=== PATIENT | male | born 1965 | race Caucasian/White ===

== ENCOUNTER 2021-02-17 04:45 | Emergency (ER) | payer SELFPAY ==
[2021-02-17 04:50] VITALS: BP 157/92; PULSE 81; RESP 16; TEMP 36.5; O2SAT 93; BMI 26.6
--- NOTE | 2021-02-17 04:56 | W.ED.SEIZURE ---
Documented by User: Carlito Gagnon DO 02/17/21 07:45 HPI - Seizure General: Chief Complaint: Seizure Stated Complaint: seizure Time Seen by Provider: 02/17/21 04:55 History of Present Illness: HPI Narrative: 55-year-old gentleman with a history of seizure disorder since the early s. He states his last seizure was about 6 months ago. He states normally if he goes to bed on time, gets plenty of sleep, and avoid stress he does not have seizures. He used to take Depakote, but does not take it anymore because he says that nothing really works to stop his seizures, only aspirin because it improves the blood flow to his brain . He admits to having had some alcohol last night. MD complaint: seizure Onset (ago): hour(s) Description of Episode: loss of consciousness, tonic-clonic movement, bladder incontinence and post-event confusion Witnessed: Yes - by Bystander Trauma: No Seizure History: Yes Place: Home Possible Precipitating Event: alcohol withdrawal (Potentially) Associated symptoms: Deny chest pain, chills, confusion, cough, diaphoresis or fever(s) Treatments prior to arrival: none Review of Systems Const: Denies: fever(s), chills or diaphoresis Card: Denies: chest pain Resp: Denies: dyspnea, productive cough or non-productive cough GI: Reports: nausea; Denies: abdominal pain, vomiting or hematemesis Neuro: Reports: headache(s) and dizziness; Denies: weakness in extremities, confusion or Slurred speech present Physical Exam Const: GENERAL APPEARANCE: well developed ORIENTATION/CONSCIOUSNESS: Yes oriented to person, Yes oriented to place and Yes oriented to time HENMT: COMMON NORMALS: normocephalic, external ears normal and Normal external nose present HEAD & SCALP: normocephalic FACE & SINUS: normal facial exam NOSE: Normal external nose present and No nasal discharge present EXTERNAL EAR: Yes external ears normal MOUTH: tongue normal TEETH & GINGIVA: Yes gingiva abnormal, Yes teeth discoloration and Yes other (Gum hypertrophy and discoloration, likely from Depakote) THROAT: posterior oropharynx normal; no peritonsillar mass Eye: COMMON NORMALS: Equal, round and reactive pupils present, EOMs intact bilaterally and conjunctivae normal EYELID: eyelids normal CONJUNCTIVA: Yes conjunctivae normal PUPIL: Yes Equal, round and reactive pupils present Neck/C-Spine: GENERAL: No tracheal deviation Chest: COMMONS NORMALS: normal inspection of the chest CHEST: No tenderness Resp: COMMON NORMALS: clear to auscultation bilaterally EFFORT & INSPECTION: No tachypneic, No respiratory distress, No retractions, No uses accessory muscles and No tracheal deviation AUSCULTATION: clear to auscultation bilaterally, no rhonchi, no wheezes and lung sounds not diminished Cardio: COMMON NORMALS: regular rate and regular rhythm RATE: regular rate RHYTHM: regular rhythm HEART SOUNDS: no murmurs PERIPHERAL PULSES: radial pulses present GI: INSPECTION: No abdominal distension AUSCULTATION: No Hyperactive bowel sounds present and No Hypoactive bowel sounds present PALPATION: No Guarding due to palpation present (GI) and No Rigid due to palpation PERCUSSION: no dullness to percussion and no tympanic to percussion Neuro: SENSORIUM/ORIENTATION: Yes oriented to person, Yes oriented to place and Yes oriented to time CRANIAL NERVES: Yes CN normal except as noted SENSORY EXAM: Yes extremities (Intact) MOTOR EXAM: 5/5 motor strength present throughout and Pronator motor function not present Psych: COMMON NORMALS: mental status grossly normal Skin: COMMON NORMALS: no rashes or lesions noted GENERAL SKIN EXAM: no rashes or lesions noted Course Vital Signs: Vital signs: Vital Signs Temperature 97.7 F 02/17/21 04:50 Pulse Rate 65 02/17/21 09:12 Respiratory Rate 18 02/17/21 09:12 Blood Pressure 143/81 02/17/21 09:12 Pulse Oximetry 97 02/17/21 09:12 MDM - Seizure MDM Narrative: Medical decision making narrative: Patient with a history of seizure disorder, he appears to be back to baseline now after a seizure. Laboratories are benign at this point. He will be discharged Lab Data: Labs: Lab Results 02/17/21 02/17/21 02/17/21 Range/Units 04:56 04:56 05:15 WBC 9.4 (4.0-10.0) 10^3/ uL RBC 4.43 (4.1-5.3) 10^6/u L Hgb 14.1 (11.7-16.6) g/dL Hct 41.9 L (42.0-52.0) % MCV 94.6 H (80-94) fL MCH 31.8 (28.0-34.0) pg MCHC 33.7 (30.0-36.0) g/dL RDW 11.7 L (12.1-15.1) % Plt Count 309 (130-400) 10^3/c mm MPV 10.9 H (7.4-10.4) fL Neut % (Auto) 85.7 % Lymph % (Auto) 8.1 % Cannon % (Auto) 4.9 % Eos % (Auto) 0.4 % Baso % (Auto) 0.4 % Neut # (Auto) 8.01 H (1.8-7.7) 10^3/u L Lymph # (Auto) 0.8 (0.8-4.8) 10^3/u L Cannon # (Auto) 0.5 (0.2-0.9) 10^3/u L Eos # (Auto) 0.0 (0.0-0.8) 10^3/u L Baso # (Auto) 0.0 (0.0-0.1) 10^3/u L Nucleated RBC % (a uto) 0 % Nucleated RBCs # 0.0 /100WBC Sodium 136 (136-145) mmol/L Potassium 3.4 L (3.5-5.1) mmol/L Chloride 103 (98-107) mmol/L Carbon Dioxide 23 (22-29) mmol/L Anion Gap 13.4 (5-19) BUN 18 (6-20) mg/dL Creatinine 0.7 (0.7-1.2) mg/dL GFR Calculation 117.5 (90-130) mL/min Glucose 142 H (65-115) mg/dL Calculated Osmolal ity 286 (285-295) mOsm/k g Calcium 8.6 (8.5-10.5) mg/dL Phosphorus 1.4 L (2.5-4.5) mg/dL Magnesium 2.3 (1.7-2.3) mg/dL Total Bilirubin 0.4 (0.15-1.2) mg/dL AST 20 (0-40) U/L ALT 40 (0-41) U/L Alkaline Phosphata se 94 (40-130) IU/L C-Reactive Protein 0.7 (0.0-4.9) mg/L Total Protein 7.1 (6.6-8.7) g/dL Albumin 4.5 (3.5-5.2) g/dL Globulin 2.6 (1.3-4.6) g/dL Urine Color Yellow (Yellow) Urine Appearance Clear (CLEAR) Urine pH 5 (5-7) Ur Specific Gravit y 1.020 (1.005-1.030) Urine Protein 1+ H (Negative) Urine Glucose (UA) Norm (Normal) Urine Ketones 1+ H (Negative) Urine Blood 3+ H (Negative) Urine Nitrate Negative (Negative) Urine Bilirubin Neg (Negative) Urine Urobilinogen Norm (Negative) mg/dL Ur Leukocyte Chelly ase Negative (Negative) Urine RBC 0-4 H (0-2) /hpf Urine WBC None (0-5) /hpf Ur Squamous Epith Cells None (0-5) /hpf Amorphous Sediment Not Reportable Urine Bacteria None (NONE) /hpf Urine Sperm None /hpf Urine Opiates Scre en (Negative) ng/mL Ur Barbiturates Sc reen (Negative) ng/mL Ur Phencyclidine S crn (Negative) ng/mL Ur Amphetamines Sc reen (Negative) ng/mL U Benzodiazepines Scrn (Negative) ng/mL Urine Cocaine Scre en (Negative) ng/mL U Marijuana (THC) Screen (Negative) ng/mL Ethyl Alcohol < 10 (0-10) mg/dL 02/17/21 Range/Units 05:15 WBC (4.0-10.0) 10^3/ uL RBC (4.1-5.3) 10^6/u L Hgb (11.7-16.6) g/dL Hct (42.0-52.0) % MCV (80-94) fL MCH (28.0-34.0) pg MCHC (30.0-36.0) g/dL RDW (12.1-15.1) % Plt Count (130-400) 10^3/c mm MPV (7.4-10.4) fL Neut % (Auto) % Lymph % (Auto) % Cannon % (Auto) % Eos % (Auto) % Baso % (Auto) % Neut # (Auto) (1.8-7.7) 10^3/u L Lymph # (Auto) (0.8-4.8) 10^3/u L Cannon # (Auto) (0.2-0.9) 10^3/u L Eos # (Auto) (0.0-0.8) 10^3/u L Baso # (Auto) (0.0-0.1) 10^3/u L Nucleated RBC % (a uto) % Nucleated RBCs # /100WBC Sodium (136-145) mmol/L Potassium (3.5-5.1) mmol/L Chloride (98-107) mmol/L Carbon Dioxide (22-29) mmol/L Anion Gap (5-19) BUN (6-20) mg/dL Creatinine (0.7-1.2) mg/dL GFR Calculation (90-130) mL/min Glucose (65-115) mg/dL Calculated Osmolal ity (285-295) mOsm/k g Calcium (8.5-10.5) mg/dL Phosphorus (2.5-4.5) mg/dL Magnesium (1.7-2.3) mg/dL Total Bilirubin (0.15-1.2) mg/dL AST (0-40) U/L ALT (0-41) U/L Alkaline Phosphata se (40-130) IU/L C-Reactive Protein (0.0-4.9) mg/L Total Protein (6.6-8.7) g/dL Albumin (3.5-5.2) g/dL Globulin (1.3-4.6) g/dL Urine Color (Yellow) Urine Appearance (CLEAR) Urine pH (5-7) Ur Specific Gravit y (1.005-1.030) Urine Protein (Negative) Urine Glucose (UA) (Normal) Urine Ketones (Negative) Urine Blood (Negative) Urine Nitrate (Negative) Urine Bilirubin (Negative) Urine Urobilinogen (Negative) mg/dL Ur Leukocyte Chelly ase (Negative) Urine RBC (0-2) /hpf Urine WBC (0-5) /hpf Ur Squamous Epith Cells (0-5) /hpf Amorphous Sediment Urine Bacteria (NONE) /hpf Urine Sperm /hpf Urine Opiates Scre en Negative (Negative) ng/mL Ur Barbiturates Sc reen Negative (Negative) ng/mL Ur Phencyclidine S crn Negative (Negative) ng/mL Ur Amphetamines Sc reen Negative (Negative) ng/mL U Benzodiazepines Scrn Negative (Negative) ng/mL Urine Cocaine Scre en Negative (Negative) ng/mL U Marijuana (THC) Screen Negative (Negative) ng/mL Ethyl Alcohol (0-10) mg/dL Discharge Plan Discharge Patient Disposition: Home Clinical Impression: Epileptic seizure Qualifiers: Epilepsy type: other generalized Condition: Stable Discharge Orders: Discharge ED (Routine); Ordered 02/17/21 Ordered By: Carlito Gagnon Discharge Diet: Advance as tolerated Discharge Activity: Limit activity as instructed Patient Instructions: Recurrent Seizures Adult (ED) Activity Restrictions/Additional Instructions: Do not drive a car or operate machinery until you are cleared by a neurologist. 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 However Dr. Gagnon remained in the department well after his shift to assist with several critical patients and ultimately discharge the patient himself. I did not participate in patient's care. Lab Data: Labs: Lab Results 02/17/21 02/17/21 02/17/21 Range/Units 04:56 04:56 05:15 WBC 9.4 (4.0-10.0) 10^3/ uL RBC 4.43 (4.1-5.3) 10^6/u L Hgb 14.1 (11.7-16.6) g/dL Hct 41.9 L (42.0-52.0) % MCV 94.6 H (80-94) fL MCH 31.8 (28.0-34.0) pg MCHC 33.7 (30.0-36.0) g/dL RDW 11.7 L (12.1-15.1) % Plt Count 309 (130-400) 10^3/c mm MPV 10.9 H (7.4-10.4) fL Neut % (Auto) 85.7 % Lymph % (Auto) 8.1 % Cannon % (Auto) 4.9 % Eos % (Auto) 0.4 % Baso % (Auto) 0.4 % Neut # (Auto) 8.01 H (1.8-7.7) 10^3/u L Lymph # (Auto) 0.8 (0.8-4.8) 10^3/u L Cannon # (Auto) 0.5 (0.2-0.9) 10^3/u L Eos # (Auto) 0.0 (0.0-0.8) 10^3/u L Baso # (Auto) 0.0 (0.0-0.1) 10^3/u L Nucleated RBC % (a uto) 0 % Nucleated RBCs # 0.0 /100WBC Sodium 136 (136-145) mmol/L Potassium 3.4 L (3.5-5.1) mmol/L Chloride 103 (98-107) mmol/L Carbon Dioxide 23 (22-29) mmol/L Anion Gap 13.4 (5-19) BUN 18 (6-20) mg/dL Creatinine 0.7 (0.7-1.2) mg/dL GFR Calculation 117.5 (90-130) mL/min Glucose 142 H (65-115) mg/dL Calculated Osmolal ity 286 (285-295) mOsm/k g Calcium 8.6 (8.5-10.5) mg/dL Phosphorus 1.4 L (2.5-4.5) mg/dL Magnesium 2.3 (1.7-2.3) mg/dL Total Bilirubin 0.4 (0.15-1.2) mg/dL AST 20 (0-40) U/L ALT 40 (0-41) U/L Alkaline Phosphata se 94 (40-130) IU/L C-Reactive Protein 0.7 (0.0-4.9) mg/L Total Protein 7.1 (6.6-8.7) g/dL Albumin 4.5 (3.5-5.2) g/dL Globulin 2.6 (1.3-4.6) g/dL Urine Color Yellow (Yellow) Urine Appearance Clear (CLEAR) Urine pH 5 (5-7) Ur Specific Gravit y 1.020 (1.005-1.030) Urine Protein 1+ H (Negative) Urine Glucose (UA) Norm (Normal) Urine Ketones 1+ H (Negative) Urine Blood 3+ H (Negative) Urine Nitrate Negative (Negative) Urine Bilirubin Neg (Negative) Urine Urobilinogen Norm (Negative) mg/dL Ur Leukocyte Chelly ase Negative (Negative) Urine RBC 0-4 H (0-2) /hpf Urine WBC None (0-5) /hpf Ur Squamous Epith Cells None (0-5) /hpf Amorphous Sediment Not Reportable Urine Bacteria None (NONE) /hpf Urine Sperm None /hpf Urine Opiates Scre en (Negative) ng/mL Ur Barbiturates Sc reen (Negative) ng/mL Ur Phencyclidine S crn (Negative) ng/mL Ur Amphetamines Sc reen (Negative) ng/mL U Benzodiazepines Scrn (Negative) ng/mL Urine Cocaine Scre en (Negative) ng/mL U Marijuana (THC) Screen (Negative) ng/mL Ethyl Alcohol < 10 (0-10) mg/dL 02/17/21 Range/Units 05:15 WBC (4.0-10.0) 10^3/ uL RBC (4.1-5.3) 10^6/u L Hgb (11.7-16.6) g/dL Hct (42.0-52.0) % MCV (80-94) fL MCH (28.0-34.0) pg MCHC (30.0-36.0) g/dL RDW (12.1-15.1) % Plt Count (130-400) 10^3/c mm MPV (7.4-10.4) fL Neut % (Auto) % Lymph % (Auto) % Cannon % (Auto) % Eos % (Auto) % Baso % (Auto) % Neut # (Auto) (1.8-7.7) 10^3/u L Lymph # (Auto) (0.8-4.8) 10^3/u L Cannon # (Auto) (0.2-0.9) 10^3/u L Eos # (Auto) (0.0-0.8) 10^3/u L Baso # (Auto) (0.0-0.1) 10^3/u L Nucleated RBC % (a uto) % Nucleated RBCs # /100WBC Sodium (136-145) mmol/L Potassium (3.5-5.1) mmol/L Chloride (98-107) mmol/L Carbon Dioxide (22-29) mmol/L Anion Gap (5-19) BUN (6-20) mg/dL Creatinine (0.7-1.2) mg/dL GFR Calculation (90-130) mL/min Glucose (65-115) mg/dL Calculated Osmolal ity (285-295) mOsm/k g Calcium (8.5-10.5) mg/dL Phosphorus (2.5-4.5) mg/dL Magnesium (1.7-2.3) mg/dL Total Bilirubin (0.15-1.2) mg/dL AST (0-40) U/L ALT (0-41) U/L Alkaline Phosphata se (40-130) IU/L C-Reactive Protein (0.0-4.9) mg/L Total Protein (6.6-8.7) g/dL Albumin (3.5-5.2) g/dL Globulin (1.3-4.6) g/dL Urine Color (Yellow) Urine Appearance (CLEAR) Urine pH (5-7) Ur Specific Gravit y (1.005-1.030) Urine Protein (Negative) Urine Glucose (UA) (Normal) Urine Ketones (Negative) Urine Blood (Negative) Urine Nitrate (Negative) Urine Bilirubin (Negative) Urine Urobilinogen (Negative) mg/dL Ur Leukocyte Chelly ase (Negative) Urine RBC (0-2) /hpf Urine WBC (0-5) /hpf Ur Squamous Epith Cells (0-5) /hpf Amorphous Sediment Urine Bacteria (NONE) /hpf Urine Sperm /hpf Urine Opiates Scre en Negative (Negative) ng/mL Ur Barbiturates Sc reen Negative (Negative) ng/mL Ur Phencyclidine S crn Negative (Negative) ng/mL Ur Amphetamines Sc reen Negative (Negative) ng/mL U Benzodiazepines Scrn Negative (Negative) ng/mL Urine Cocaine Scre en Negative (Negative) ng/mL U Marijuana (THC) Screen Negative (Negative) ng/mL Ethyl Alcohol (0-10) mg/dL Discharge Plan Discharge Patient Disposition: Home Clinical Impression: Epileptic seizure Qualifiers: Epilepsy type: other generalized Condition: Stable Discharge Orders: Discharge ED (Routine); Ordered 02/17/21 Ordered By: Carlito Gagnon Discharge Diet: Advance as tolerated Discharge Activity: Limit activity as instructed Patient Instructions: Recurrent Seizures Adult (ED) Activity Restrictions/Additional Instructions: Do not drive a car or operate machinery until you are cleared by a neurologist. 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
--- NOTE | 2021-02-17 05:16 | XRR_ITS ---
PROCEDURE INFORMATION: Exam: XR Chest Exam date and time: 02/17/2021 5:21 AM Age: 55 years old Clinical indication: Patient HX: Seizure activity; Additional info: Bridger TECHNIQUE: Imaging protocol: XR of the chest. Views: 1 view. COMPARISON: No relevant prior studies available. FINDINGS: Lungs: Unremarkable. No consolidation. Pleural spaces: Unremarkable. No pleural effusion. No pneumothorax. Heart/Mediastinum: Unremarkable. No cardiomegaly. Bones/joints: Unremarkable. XR/XR chest 1V portable [id number] IMPRESSION: No acute findings.
[2021-02-17] MEDS: sodium chloride 0.9% 500 ML IV (05:28)
[2021-02-17 05:35] VITALS: BP 151/93; PULSE 69; O2SAT 95
[2021-02-17 05:49] LABS: Basophils % 0.4 %; Eosinophils % 0.4 %; Hematocrit 41.9 % (42.0-52.0); Hemoglobin 14.1 g/dL (11.7-16.6); Lymphocytes # 0.8 10^3/uL (0.8-4.8); Lymphocytes % 8.1 %; Mean Corpuscular HGB Conc 33.7 g/dL (30.0-36.0); Mean Corpuscular Hemoglobin 31.8 pg (28.0-34.0); Mean Corpuscular Volume 94.6 fL (80-94); Mean Platelet Volume 10.9 fL (7.4-10.4); Monocytes # 0.5 10^3/uL (0.2-0.9); Monocytes % 4.9 %; Neutrophils # 8.01 10^3/uL (1.8-7.7); Neutrophils % 85.7 %; Nucleated Red Blood Cells % 0 %; Platelet Count 309 10^3/cmm (130-400); Red Blood Count 4.43 10^6/uL (4.1-5.3); Red Cell Distribution Width 11.7 % (12.1-15.1); White Blood Count 9.4 10^3/uL (4.0-10.0)
[2021-02-17 06:01] LABS: Alanine Aminotransferase 40 U/L (0-41); Albumin Level 4.5 g/dL (3.5-5.2); Alkaline Phosphatase 94 IU/L (40-130); Anion Gap 13.4 (5-19); Aspartate Amino Transferase 20 U/L (0-40); Blood Urea Nitrogen 18 mg/dL (6-20); C Reactive Protein 0.7 mg/L (0.0-4.9); Calcium 8.6 mg/dL (8.5-10.5); Carbon Dioxide 23 mmol/L (22-29); Chloride 103 mmol/L (98-107); Globulin 2.6 g/dL (1.3-4.6); Glomerular Filtration Rate 117.5 mL/min (90-130); Glucose 142 mg/dL (65-115); Magnesium 2.3 mg/dL (1.7-2.3); Osmolality Calculated 286 mOsm/kg (285-295); Phosphorus 1.4 mg/dL (2.5-4.5); Potassium 3.4 mmol/L (3.5-5.1); Sodium 136 mmol/L (136-145); Total Bilirubin 0.4 mg/dL (0.15-1.2); Total Protein 7.1 g/dL (6.6-8.7)
[2021-02-17 06:03] LABS: Amphetamines Screen Urine Negative (Negative); Barbiturates Screen Urine Negative (Negative); Benzodiazepines Screen Urine Negative (Negative); Cocaine Screen Urine Negative (Negative); Opiate Screen Urine Negative (Negative); PCP Screen Urine Negative (Negative); THC Screen Urine Negative (Negative)
[2021-02-17 07:00] VITALS: BP 118/78; PULSE 64; RESP 18; O2SAT 96
[2021-02-17 07:24] LABS: Alcohol Level < 10 mg/dL (0-10)
[2021-02-17 07:32] LABS: Glucose Urine UA Norm (Normal); Protein Urine 1+ (Negative); Urine Appearance Clear (CLEAR); Urine Color Yellow (Yellow); pH Urine 5 (5-7)
[2021-02-17 07:33] LABS: Add Urine Microscopic? YES; Bilirubin Urine Neg (Negative); Blood Urine 3+ (Negative); Ketones Urine 1+ (Negative); Leukocyte Esterase Urine Negative (Negative); Nitrate Urine Negative (Negative); Urobilinogen Urine Norm (Negative)
[2021-02-17 07:35] LABS: RBC Urine 0-4 /hpf (0-2)
[2021-02-17 07:36] LABS: Add Urine Culture? No
[2021-02-17 09:10] VITALS: BP 143/81; PULSE 65; RESP 18; O2SAT 97
[2021-02-17 09:12] VITALS: BP 143/81; PULSE 65; RESP 18; O2SAT 97
== END 2021-02-17 09:35 | disposition home or self-care (01) ==
PROVIDERS: Emergency Provider Emergency Medicine
DX: G40.409 Other generalized epilepsy and epileptic syndromes, not intractable, without status epilepticus (principal)
CPT/HCPCS: 71045; 80053; 80306; 80307; 81001; 83735; 84100; 85025; 86140; 96360; 99283; J7040

== ENCOUNTER 2021-07-01 21:08 | Inpatient (IN) | payer SELFPAY ==
[2021-07-01 21:13] VITALS: BP 151/117; PULSE 123; RESP 18; TEMP 36.4; O2SAT 96; BMI 25.8
--- NOTE | 2021-07-01 21:23 | CTR_ITS ---
PROCEDURE INFORMATION: Exam: CT Abdomen And Pelvis With Contrast Exam date and time: 07/01/2021 9:23 PM Age: 56 years old Clinical indication: Abdominal pain; Generalized; Patient HX: C/O abd pain w n/v since 06/29; Additional info: Abdominal pain vomiting TECHNIQUE: Imaging protocol: Computed tomography of the abdomen and pelvis with contrast. Radiation optimization: All CT scans at this facility use at least one of these dose optimization techniques: automated exposure control; mA and/or kV adjustment per patient size (includes targeted exams where dose is matched to clinical indication); or iterative reconstruction. Contrast material: OMNI 300; Contrast volume: 95 ml; Contrast route: INTRAVENOUS (IV); COMPARISON: CT abdomen pelvis w con* [id number] 01/23/2015 11:39 AM RADIATION DOSE METRICS: Total DLP (mGy-cm): 1548.02 FINDINGS: Lungs: The lung bases are clear. No effusion Liver: There is a subcentimeter low-attenuation lesion of the liver which is too small to accurately characterize but may represent a cyst. Gallbladder and bile ducts: There is cholelithiasis without wall thickening or pericholecystic fluid. Pancreas: Mild pancreatic edema with peripancreatic fat stranding. Normal pancreatic enhancement. Spleen: Normal. No splenomegaly. Adrenal glands: Normal. No mass. Kidneys and ureters: There is a subcentimeter low-attenuation lesions/lesions, of the right kidney which are too small to accurately characterize by CT. There are multiple left renal cysts, largest measures 2 cm. Stomach and bowel: Diverticulosis without diverticulitis. Appendix: No evidence of appendicitis. Intraperitoneal space: Small amount of free fluid in the pelvis. Vasculature: Mild atherosclerotic disease of the aorta without aneurysm. Lymph nodes: Unremarkable. No enlarged lymph nodes. Urinary bladder: Unremarkable as visualized. Reproductive: Unremarkable as visualized. Bones/joints: Unremarkable. No acute fracture. Soft tissues: Unremarkable. CT/CT abdomen pelvis w con* [id number] IMPRESSION: 1. Acute, uncomplicated 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 No evidence of necrosis. 2. Cholelithiasis without cholecystitis. 3. Mild atherosclerotic disease of the aorta without aneurysm. 4. Diverticulosis without diverticulitis. COMMENTS: Consistent with the [employer]'s Incidental Findings Committee white paper (J Am Konrad Radiol 2018): Any incidental renal lesion less than 1 cm or classified as too small to characterize, or any incidental cystic renal lesion characterized as simple-appearing, is likely benign. No follow-up imaging is recommended for these lesions per consensus recommendations based on imaging criteria. Radiation Dose CTDIVOL = (mGy): DLP = 1548.02 (mGy-cm)
--- NOTE | 2021-07-01 21:31 | W.ED.ABDPA2 ---
HPI - Abdominal Pain General: Chief Complaint: Abdominal Pain Stated Complaint: ABD Pain Nausea Time Seen by Provider: 07/01/21 21:18 History of Present Illness: HPI narrative: 6-year-old male has been sick since Friday. He notes he had pain in his lower abdomen, then began to have vomiting. Only small amount of diarrhea. No fever. His pain is worsened over the past couple of days, and is now generalized. No blood in the stool, or vomitus. No other sick family members. No cough or congestion. No history of belly surgery. MD elicited complaint: abdominal pain Pertinent past history: none Onset (ago): day(s) Pain Consistency: constant Location: Diffuse Severity: moderate Quality: aching and fullness Radiation: none Migration to: no migration Exacerbating factors: eating and vomiting Relieving factors: nothing Associated Symptoms: Reports anorexia, bloating, change in stool character, diarrhea (Minimal), nausea, poor appetite and vomiting; Denies chills, coffee ground emesis, constipation, fever(s), hematochezia, hematuria, hematemesis, fecal incontinence and melena Review of Systems Const: Denies: fever(s) or chills Eyes: Denies: change in vision Card: Denies: chest pain Resp: Denies: dyspnea, productive cough, non-productive cough or wheezing GI: Reports: nausea, vomiting, diarrhea (Minimal), bloating and change in stool character; Denies: hematemesis, coffee ground emesis, constipation, fecal incontinence, hematochezia or melena : Denies: hematuria Neuro: Denies: headache(s) Physical Exam Const: GENERAL APPEARANCE: cooperative and ill appearing ORIENTATION/CONSCIOUSNESS: Yes awake, Yes oriented to person, Yes oriented to place and Yes oriented to time HENMT: COMMON NORMALS: normocephalic HEAD & SCALP: normocephalic Chest: COMMONS NORMALS: normal inspection of the chest Resp: COMMON NORMALS: normal respiratory effort, No use of accessory muscles and clear to auscultation bilaterally AUSCULTATION: clear to auscultation bilaterally Cardio: COMMON NORMALS: regular rate and regular rhythm RATE: regular rate RHYTHM: regular rhythm GI: PALPATION: Yes Firmness to palpation present (GI), Yes Tenderness to palpation present (GI) (Diffuse) and Yes Guarding due to palpation present (GI) PERCUSSION: dullness to percussion Neuro: SENSORIUM/ORIENTATION: Yes oriented to person, Yes oriented to place and Yes oriented to time Course Consultations: Consultation #1: randal Vital Signs: Vital signs: Vital Signs Temperature 97.5 F L 07/01/21 21:13 Pulse Rate 100 07/02/21 02:20 Respiratory Rate 19 H 07/02/21 02:20 Blood Pressure 150/87 07/02/21 02:20 Pulse Oximetry 94 07/02/21 02:20 MDM - Abdominal Pain MDM Narrative: Medical decision making narrative: 56-year-old male presents with belly pain, right-sided greater than left-sided, with some epigastric pain and significant amount of vomiting. No fever. White blood cell count is 24, bilirubin is 5, liver enzymes are elevated. CT reveals Aggie lithiasis, a large stone, with pancreatitis, but no evidence of cholecystitis. There was concern due to obstructive biliary pattern with labs. Because of this ultrasound was ordered and shows the large gallstone without significant signs of cholecystitis. MRCP is ordered to ensure no choledocholithiasis, and is negative. Repeat labs show a decrease in lactate, stable white blood cell count, and improvement in the bilirubin as well. He has received vancomycin, Zosyn, and Flagyl. He will be admitted for pancreatitis, and coverage will continue. Lab Data: Labs: Lab Results 07/01/21 07/01/21 07/01/21 Range/Units 21:23 21:23 21:23 WBC 24.3 H (4.0-10.0) 10^3/ uL RBC 5.93 H (4.1-5.3) 10^6/u L Hgb 19.1 H (11.7-16.6) g/dL Hct 55.2 H (42.0-52.0) % MCV 93.1 (80-94) fl MCH 32.2 (28.0-34.0) pg MCHC 34.6 (30.0-36.0) g/dL RDW 12.0 L (12.1-15.1) % Plt Count 515 H (130-400) 10^3/c mm MPV 11.0 H (7.4-10.4) fL Neut % (Auto) 91.6 % Lymph % (Auto) 4.1 % Mellette % (Auto) 3.7 % Eos % (Auto) 0.0 % Baso % (Auto) 0.2 % Neut # (Auto) 22.24 H (1.8-7.7) 10^3/u L Lymph # (Auto) 1.0 (0.8-4.8) 10^3/u L Mellette # (Auto) 0.9 (0.2-0.9) 10^3/u L Eos # (Auto) 0.0 (0.0-0.8) 10^3/u L Baso # (Auto) 0.0 (0.0-0.1) 10^3/u L Nucleated RBC % (a uto) 0 % Total Counted (0-100) Atypical Lymphs % (0-5) % Absolute Neutrophi ls (1.4-6.5) 10^3/c mm Segmented Neutroph ils % Abs Segm Neuts (Ma n) (1.6-7.1) 10/cmm Band Neutrophils % Abs Band Neuts (Ma n) (0.0-1.2) 10^3/c mm Absolute Lymphocyt es (1.2-3.4) 10^3/c mm Lymphocytes (Manua l) % Monocytes (Manual) % Absolute Monocytes (0.1-0.6) 10^3/c mm Eosinophils (Manua l) % Absolute Eosinophi ls (0.0-0.7) 10^3/c mm Basophils (Manual) % Absolute Basophils (0.0-0.2) 10^3/c mm Nucleated RBCs # 0.0 /100WBC Platelet Estimate (Normal) Giant Platelets Polychromasia Poikilocytosis Oden Cells Sodium 143 (136-145) mmol/L Potassium 5.0 (3.5-5.1) mmol/L Chloride 101 (98-107) mmol/L Carbon Dioxide 23 (22-29) mmol/L Anion Gap 24.0 H (5-19) BUN 13 (6-20) mg/dL Creatinine 0.9 (0.7-1.2) mg/dL GFR Calculation 87.6 L (90-130) mL/min Glucose 242 H (65-115) mg/dL Calculated Osmolal ity 304 H (285-295) mOsm/k g Lactic Acid 3.7 H (0.5-2.2) mmol/L Lactate (0.5-2.2) mmol/L Calcium 9.3 (8.5-10.5) mg/dL Total Bilirubin 5.1 H (0.15-1.2) mg/dL Direct Bilirubin (0.00-0.30) mg/d L AST 167 H (0-40) U/L ALT 461 H (0-41) U/L Alkaline Phosphata se 168 H (40-130) IU/L C-Reactive Protein 32.1 H (0.0-4.9) mg/L Total Protein 8.4 (6.6-8.7) g/dL Albumin 4.7 (3.5-5.2) g/dL Globulin 3.7 (1.3-4.6) g/dL Lipase 1910 H (13-60) U/L Urine Color (Yellow) Urine Appearance (CLEAR) Urine pH (5-7) Ur Specific Gravit y (1.005-1.030) Urine Protein (Negative) Urine Glucose (UA) (Normal) Urine Ketones (Negative) Urine Blood (Negative) Urine Nitrate (Negative) Urine Bilirubin (Negative) Urine Urobilinogen (Negative) mg/dL Ur Leukocyte Chelly ase (Negative) Urine RBC (0-2) /hpf Urine WBC (0-5) /hpf Ur Squamous Epith Cells (0-5) /hpf Amorphous Sediment Urine Bacteria (NONE) /hpf 07/01/21 07/02/21 07/02/21 Range/Units 23:07 02:23 02:23 WBC 22.0 H (4.0-10.0) 10^3/ uL RBC 5.02 (4.1-5.3) 10^6/u L Hgb 16.2 (11.7-16.6) g/dL Hct 47.1 (42.0-52.0) % MCV 93.8 (80-94) fl MCH 32.3 (28.0-34.0) pg MCHC 34.4 (30.0-36.0) g/dL RDW 12.3 (12.1-15.1) % Plt Count 392 (130-400) 10^3/c mm MPV 10.6 H (7.4-10.4) fL Neut % (Auto) % Lymph % (Auto) % Mellette % (Auto) % Eos % (Auto) % Baso % (Auto) % Neut # (Auto) (1.8-7.7) 10^3/u L Lymph # (Auto) (0.8-4.8) 10^3/u L Mellette # (Auto) (0.2-0.9) 10^3/u L Eos # (Auto) (0.0-0.8) 10^3/u L Baso # (Auto) (0.0-0.1) 10^3/u L Nucleated RBC % (a uto) % Total Counted 100 (0-100) Atypical Lymphs % 0.0 (0-5) % Absolute Neutrophi ls 19.1 H (1.4-6.5) 10^3/c mm Segmented Neutroph ils 87 % Abs Segm Neuts (Ma n) 19.1 H (1.6-7.1) 10/cmm Band Neutrophils 0.0 % Abs Band Neuts (Ma n) 0.0 (0.0-1.2) 10^3/c mm Absolute Lymphocyt es 2.2 (1.2-3.4) 10^3/c mm Lymphocytes (Manua l) 10 % Monocytes (Manual) 3.0 % Absolute Monocytes 0.7 H (0.1-0.6) 10^3/c mm Eosinophils (Manua l) 0 % Absolute Eosinophi ls 0.0 (0.0-0.7) 10^3/c mm Basophils (Manual) 0.0 % Absolute Basophils 0.0 (0.0-0.2) 10^3/c mm Nucleated RBCs # /100WBC Platelet Estimate Normal (Normal) Giant Platelets 1+ H Polychromasia Trace Poikilocytosis Trace Latanya Cells Trace Sodium (136-145) mmol/L Potassium (3.5-5.1) mmol/L Chloride (98-107) mmol/L Carbon Dioxide (22-29) mmol/L Anion Gap (5-19) BUN (6-20) mg/dL Creatinine (0.7-1.2) mg/dL GFR Calculation (90-130) mL/min Glucose (65-115) mg/dL Calculated Osmolal ity (285-295) mOsm/k g Lactic Acid (0.5-2.2) mmol/L Lactate (0.5-2.2) mmol/L Calcium (8.5-10.5) mg/dL Total Bilirubin 3.7 H (0.15-1.2) mg/dL Direct Bilirubin 2.90 H (0.00-0.30) mg/d L AST 114 H (0-40) U/L ALT 341 H (0-41) U/L Alkaline Phosphata se 137 H (40-130) IU/L C-Reactive Protein (0.0-4.9) mg/L Total Protein 6.4 L D (6.6-8.7) g/dL Albumin 3.8 (3.5-5.2) g/dL Globulin 2.6 (1.3-4.6) g/dL Lipase (13-60) U/L Urine Color Yellow (Yellow) Urine Appearance Clear (CLEAR) Urine pH 6.5 (5-7) Ur Specific Gravit y 1.005 (1.005-1.030) Urine Protein Trace (Negative) Urine Glucose (UA) Norm (Normal) Urine Ketones Negative (Negative) Urine Blood Neg (Negative) Urine Nitrate Negative (Negative) Urine Bilirubin 1+ H (Negative) Urine Urobilinogen 1 H (Negative) mg/dL Ur Leukocyte Chelly ase Negative (Negative) Urine RBC 0-4 H (0-2) /hpf Urine WBC 0-4 H (0-5) /hpf Ur Squamous Epith Cells 0-4 H (0-5) /hpf Amorphous Sediment Not Reportable Urine Bacteria Trace (NONE) /hpf 07/02/ Range/Units 02:23 WBC (4.0-10.0) 10^3/ uL RBC (4.1-5.3) 10^6/u L Hgb (11.7-16.6) g/dL Hct (42.0-52.0) % MCV (80-94) fl MCH (28.0-34.0) pg MCHC (30.0-36.0) g/dL RDW (12.1-15.1) % Plt Count (130-400) 10^3/c mm MPV (7.4-10.4) fL Neut % (Auto) % Lymph % (Auto) % Mellette % (Auto) % Eos % (Auto) % Baso % (Auto) % Neut # (Auto) (1.8-7.7) 10^3/u L Lymph # (Auto) (0.8-4.8) 10^3/u L Mellette # (Auto) (0.2-0.9) 10^3/u L Eos # (Auto) (0.0-0.8) 10^3/u L Baso # (Auto) (0.0-0.1) 10^3/u L Nucleated RBC % (a uto) % Total Counted (0-100) Atypical Lymphs % (0-5) % Absolute Neutrophi ls (1.4-6.5) 10^3/c mm Segmented Neutroph ils % Abs Segm Neuts (Ma n) (1.6-7.1) 10/cmm Band Neutrophils % Abs Band Neuts (Ma n) (0.0-1.2) 10^3/c mm Absolute Lymphocyt es (1.2-3.4) 10^3/c mm Lymphocytes (Manua l) % Monocytes (Manual) % Absolute Monocytes (0.1-0.6) 10^3/c mm Eosinophils (Manua l) % Absolute Eosinophi ls (0.0-0.7) 10^3/c mm Basophils (Manual) % Absolute Basophils (0.0-0.2) 10^3/c mm Nucleated RBCs # /100WBC Platelet Estimate (Normal) Giant Platelets Polychromasia Poikilocytosis Latanya Cells Sodium (136-145) mmol/L Potassium (3.5-5.1) mmol/L Chloride (98-107) mmol/L Carbon Dioxide (22-29) mmol/L Anion Gap (5-19) BUN (6-20) mg/dL Creatinine (0.7-1.2) mg/dL GFR Calculation (90-130) mL/min Glucose (65-115) mg/dL Calculated Osmolal ity (285-295) mOsm/k g Lactic Acid (0.5-2.2) mmol/L Lactate 1.2 (0.5-2.2) mmol/L Calcium (8.5-10.5) mg/dL Total Bilirubin (0.15-1.2) mg/dL Direct Bilirubin (0.00-0.30) mg/d L AST (0-40) U/L ALT (0-41) U/L Alkaline Phosphata se (40-130) IU/L C-Reactive Protein (0.0-4.9) mg/L Total Protein (6.6-8.7) g/dL Albumin (3.5-5.2) g/dL Globulin (1.3-4.6) g/dL Lipase (13-60) U/L Urine Color (Yellow) Urine Appearance (CLEAR) Urine pH (5-7) Ur Specific Gravit y (1.005-1.030) Urine Protein (Negative) Urine Glucose (UA) (Normal) Urine Ketones (Negative) Urine Blood (Negative) Urine Nitrate (Negative) Urine Bilirubin (Negative) Urine Urobilinogen (Negative) mg/dL Ur Leukocyte Chelly ase (Negative) Urine RBC (0-2) /hpf Urine WBC (0-5) /hpf Ur Squamous Epith Cells (0-5) /hpf Amorphous Sediment Urine Bacteria (NONE) /hpf Discharge Plan Discharge Patient Disposition: Admitted As Inpatient Clinical Impression: Pancreatitis Qualifiers: Chronicity: acute Pancreatitis type: idiopathic Acute pancreatitis complication: unspecified Qualified Code(s): K85.00 - Idiopathic acute pancreatitis without necrosis or infection Condition: Stable Coding Level of Care Code ED [facility] Caulker for [facility] Fwd Exam Detailed
[2021-07-01 21:46] LABS: Basophils % 0.2 %; Hematocrit 55.2 % (42.0-52.0); Hemoglobin 19.1 g/dL (11.7-16.6); Lymphocytes % 4.1 %; Mean Corpuscular HGB Conc 34.6 g/dL (30.0-36.0); Mean Corpuscular Hemoglobin 32.2 pg (28.0-34.0); Mean Corpuscular Volume 93.1 fl (80-94); Monocytes # 0.9 10^3/uL (0.2-0.9); Monocytes % 3.7 %; Neutrophils # 22.24 10^3/uL (1.8-7.7); Neutrophils % 91.6 %; Nucleated Red Blood Cells % 0 %; Platelet Count 515 10^3/cmm (130-400); Red Blood Count 5.93 10^6/uL (4.1-5.3); White Blood Count 24.3 10^3/uL (4.0-10.0)
[2021-07-01] MEDS: sodium chloride 0.9% 1,000 ML 999 ML IV ×2 (21:51→23:05)
[2021-07-01] MEDS: ondansetron 2 mg/ML SDV 2 mL 4 MG IVP (21:52)
[2021-07-01] MEDS: morphine 4 mg/mL SDV 1 mL IVP (21:53)
[2021-07-01 22:00] LABS: Alanine Aminotransferase 461 U/L (0-41); Albumin Level 4.7 g/dL (3.5-5.2); Alkaline Phosphatase 168 IU/L (40-130); Aspartate Amino Transferase 167 U/L (0-40); Blood Urea Nitrogen 13 mg/dL (6-20); C Reactive Protein 32.1 mg/L (0.0-4.9); Calcium 9.3 mg/dL (8.5-10.5); Carbon Dioxide 23 mmol/L (22-29); Chloride 101 mmol/L (98-107); Globulin 3.7 g/dL (1.3-4.6); Glomerular Filtration Rate 87.6 mL/min (90-130); Glucose 242 mg/dL (65-115); Osmolality Calculated 304 mOsm/kg (285-295); Sodium 143 mmol/L (136-145); Total Bilirubin 5.1 mg/dL (0.15-1.2); Total Protein 8.4 g/dL (6.6-8.7)
[2021-07-01 22:18] LABS: Lipase 1910 U/L (13-60)
[2021-07-01] MEDS: iohexol 300 mg/mL 100 mL Btl IV (22:27)
[2021-07-01 23:29] LABS: Add Urine Microscopic? YES; Bilirubin Urine 1+ (Negative); Blood Urine Neg (Negative); Glucose Urine UA Norm (Normal); Ketones Urine Negative (Negative); Leukocyte Esterase Urine Negative (Negative); Nitrate Urine Negative (Negative); Protein Urine Trace (Negative); Specific Gravity, Urine 1.005 (1.005-1.030); Urine Appearance Clear (CLEAR); Urine Color Yellow (Yellow); Urobilinogen Urine 1 mg/dL (Negative); pH Urine 6.5 (5-7)
[2021-07-01 23:31] LABS: Add Urine Culture? No; Bacteria Urine TRACE /hpf; RBC Urine 0-4 /hpf (0-2); Squamous Epithelial Cell Urine 0-4 /hpf (0-5); WBC Urine 0-4 /hpf (0-5)
[2021-07-01] MEDS: enalaprilat 1.25 mg/mL Inj IVP (23:41)
[2021-07-01 23:43] VITALS: BP 189/116; PULSE 98; RESP 19; O2SAT 95
[2021-07-02] VITALS (11 sets, daily range): BP systolic 130–182; BP diastolic 68–98; PULSE 87–121; RESP 16–19; TEMP 37–38.4; O2SAT 92–95; BMI 25.8
[2021-07-02 00:07] LABS: Lactic Sepsis W/Reflex 3.7 mmol/L (0.5-2.2)
--- NOTE | 2021-07-02 00:28 | MRR_ITS ---
PROCEDURE INFORMATION: Exam: MR Abdomen Without Contrast Exam date and time: 07/02/2021 12:28 AM Age: 56 years old Clinical indication: Abdominal pain; Additional info: Ruq pain, elevated lft TECHNIQUE: Imaging protocol: MR of the abdomen without contrast. COMPARISON: CT abdomen pelvis w con* [id number] 07/01/2021 10:23 PM FINDINGS: Liver: 1.2 cm left lobe hepatic cyst. Gallbladder and bile ducts: 3 cm gallstone is present with multiple smaller stones. No pericholecystic fluid. No choledocholithiasis. No biliary dilation. Pancreas: There is mild pancreatic edema with peripancreatic fluid. Spleen: Unremarkable. No splenomegaly. Adrenal glands: Unremarkable. No mass. Kidneys and ureters: There are multiple left renal cysts, largest measures 1.9 cm. Stomach and bowel: Visualized stomach and intestines are unremarkable. Intraperitoneal space: No free fluid. Arteries: No abdominal aortic aneurysm. Bones/joints: Unremarkable. Soft tissues: Unremarkable. MR/MR MRCP [id number] IMPRESSION: 1. Cholelithiasis without cholecystitis. 2. Acute 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 3. No choledocholithiasis. COMMENTS: Consistent with the [employer]'s Incidental Findings Committee white paper (J Am Konrad Radiol 2018): Any incidental renal lesion less than 1 cm or classified as too small to characterize, or any incidental cystic renal lesion characterized as simple-appearing, is likely benign. No follow-up imaging is recommended for these lesions per consensus recommendations based on imaging criteria.
[2021-07-02] MEDS: metroNIDAZOLE IV 500 MG/100 ML PREMIX 100 MG IV (00:29)
[2021-07-02] MEDS: piperacillin-tazobactam 4.5 GM in sodium chloride 0.9% (plus) 50 ML IV (00:29)
[2021-07-02] MEDS: HYDROmorphone 1 mg/mL INJ 1 mL IVP ×6 (00:50→22:00)
[2021-07-02 01:40] LABS: Reflex Lactate Order REFLEX LACTIC ORDERD
[2021-07-02] MEDS: vancomycin 1,000 MG in sodium chloride 0.9% 250 ML 250 MG IV (01:40)
[2021-07-02] MEDS: ondansetron 2 mg/ML SDV 2 mL 4 MG IVP ×2 (02:19→11:27)
[2021-07-02 02:30] LABS: Hematocrit 47.1 % (42.0-52.0); Hemoglobin 16.2 g/dL (11.7-16.6); Mean Corpuscular HGB Conc 34.4 g/dL (30.0-36.0); Mean Corpuscular Hemoglobin 32.3 pg (28.0-34.0); Mean Corpuscular Volume 93.8 fl (80-94); Mean Platelet Volume 10.6 fL (7.4-10.4); Platelet Count 392 10^3/cmm (130-400); Red Blood Count 5.02 10^6/uL (4.1-5.3); Red Cell Distribution Width 12.3 % (12.1-15.1)
[2021-07-02 02:50] LABS: Absolute Segmented Neutrophil 19.1 10/cmm (1.6-7.1); Eosinophils 0 %; Lymphocytes 10 %; Lymphocytes Absolute 2.2 10^3/cmm (1.2-3.4); Monocytes Absolute 0.7 10^3/cmm (0.1-0.6); Segmented Neutrophils 87 %; Total Cells Counted 100 (0-100)
[2021-07-02 02:51] LABS: Absolute Neutrophil 19.1 10^3/cmm (1.4-6.5); Burr Cells Trace; Giant Platelets 1+; Platelet Estimate Normal (Normal); Poikilocytosis Trace; Polychromasia Trace
[2021-07-02 02:54] LABS: Alanine Aminotransferase 341 U/L (0-41); Albumin Level 3.8 g/dL (3.5-5.2); Alkaline Phosphatase 137 IU/L (40-130); Aspartate Amino Transferase 114 U/L (0-40); Globulin 2.6 g/dL (1.3-4.6); Total Bilirubin 3.7 mg/dL (0.15-1.2); Total Protein 6.4 g/dL (6.6-8.7)
[2021-07-02 02:55] LABS: Lactate (Lactic Acid level) 1.2 mmol/L (0.5-2.2)
[2021-07-02 04:43] LABS: Lactic Acid level (Lactate) 1.2 mmol/L (0.5-2.2)
--- NOTE | 2021-07-02 05:43 | PC.NURSE ---
report called to Linda JUNE at [phone]
--- NOTE | 2021-07-02 09:19 | P.HP_ITS ---
Providers/Chief Complaint Admitting Physician: Daija Zabala MD Chief Complaint: ABD Pain Nausea History of Present Illness Gurvinder Carranza is a 56 year old male who presented to the hospital with 2 to 3 days of abdominal pain. He reports this is all over, with no radiation. It is been associate with nausea and vomiting. He has had an occasional loose stool but none in the last 2 days. He denies any fever. He reports no blood in his emesis, no blood in his stool and no black or tarry stool. He reports no history of Covid, exposure to it and is on vaccinated. He denies any previous history of abdominal discomfort like this. He reports his only medicine is an aspirin once a day. He reports he drinks a bottle of whiskey about every 1 to 2 weeks. Review of Systems General: Reports: 10 or more systems reviewed and unremarkable except in HPI and below Const: Denies: fever(s) or chills Eyes: Denies: change in vision ENMT: Denies: throat pain Card: Denies: chest pain Resp: Denies: dyspnea GI: Reports: abdominal pain, nausea and vomiting; Denies: hematemesis, hematochezia or melena : Denies: flank pain Musc: Denies: neck pain Skin/Breast: Denies: rash Neuro: Denies: headache(s) Psych: Denies: anxiety Endo: Denies: polyuria José/Lymph: Denies: easy bruising All/Imm: Denies: urticaria Medications/Allergies Allergies Allergy/AdvReac Type Severity Reaction Status Date / Time No Known Allergies Allergy Verified 02/17/21 04:58 PFSH Acute PFSH: Medical History (Updated 07/02/21 @ 09:28 by Mike Ruiz MD) Alcohol use Nicotine dependence Seizure disorder Surgical History (Updated 07/02/21 @ 09:24 by Mike Ruiz MD) History of brain surgery Social History (Updated 07/02/21 @ 09:24 by Mike Ruiz MD) Smoking and tobacco status: current every day smoker smokeless tobacco Alcohol intake: current Alcohol intake frequency: 0-2 Drinks per Day Supplemental PFSH Information: Reports family history of gallbladder disease. Vitals/I&O/Wt Last Vital Signs Temp 98.6 F 07/02/21 08:00 Pulse 103 H 07/02/21 08:00 Resp 17 07/02/21 08:00 BP 182/96 07/02/21 08:00 Pulse Ox 95 07/02/21 08:00 07/01/21 07/02/21 07/02/21 22:59 06:59 14:59 Intake Total 2400 / 2400 Balance 2400 / 2400 Weight last 48 hrs Weight 81.647 kg Physical Exam Narrative: EXAM NARRATIVE: General exam is a white male, in no apparent distress HEENT: Pupils equally round. Oropharynx clear. Neck is supple no lymphadenopathy or thyromegaly Cardiovascular regular rate and rhythm without murmur, no S3 or S4. Borderline tachycardic. Lungs clear no wheezing or crackles Abdomen is soft. Tenderness is throughout. A few bowel sounds are heard. No obvious hepatosplenomegaly. exam is deferred Extremities no cyanosis clubbing or edema, cap refill brisk. Pulses intact. Skin no obvious rash Neuro no obvious focal deficits. Data : 07/02/21 02:23 07/01/21 21:23 Micro: Microbiology 07/02/21 00:27 Blood Culture - Preliminary Blood SPECIMEN COLLECTED 07/02/21 00:00 Blood Culture - Preliminary Blood SPECIMEN COLLECTED Other data: Lactate is normal Bilirubin elevated at 5.1 now 3.7. AST 114, ALT 345, alk phos 137, lipase 1910. Urinalysis negative. Gallbladder ultrasound showing cholelithiasis with mild gallbladder wall thickening MRCP with acute pancreatitis, no choledocholithiasis, cholelithiasis without cholecystitis is noted. A&P Assessment and plan (1) Pancreatitis: Acute pancreatitis is present. Will check triglyceride level. Could be secondary to alcohol use. N.p.o. with the exception of ice chips, a few clear liquids. Pain control Repeat lipase tomorrow Increase diet if improving Hydration Continue Zosyn for now empirically as this was started in the ER, question of cholecystitis at that time. Status: Acute Qualifiers: Acute pancreatitis complication: unspecified Chronicity: acute Pancreatitis type: idiopathic Qualified Code(s): K85.00 - Idiopathic acute pancreatitis without necrosis or infection (2) Hyperglycemia: Check hemoglobin A1c Sliding scale insulin Status: Acute (3) Transaminitis: Check hepatitis panel Appropriate imaging has already been done We will discuss briefly with surgery as patient improves. Secondary to pancreatitis he may be a candidate for cholecystectomy in the future Status: Acute (4) Cholelithiasis: See notations above Status: Acute (5) Seizure disorder: Patient reports he only has a seizure if he gets sleep deprived or has another significant stressor. Monitor closely Seizure precautions Note that he has had some type of brain surgery in the past to reduce seizure activity. Status: Acute (6) Alcohol use: Avoid alcohol Monitor for withdrawal Status: Acute (7) Nicotine dependence: Counseled on nicotine avoidance Status: Acute Additional A&P Information Elevated blood pressure. Hydralazine as needed. Consider adding daily medicine if this is persistently high. Full code Lovenox for DVT prophylaxis. Pepcid for GI prophylaxis Attestations Medical Necessity Statement*: Will need greater than 2 midnight stay secondary to acute pancreatitis with need for supportive care, IV fluids Time Spent in Patient Care: Greater than 35 minutes Coding Level of Care Code Acute [employer] for Jose Fwd Diagnoses Pancreatitis K85.00 Acute pancreatitis complication: unspecified Chronicity: acute Pancreatitis type: idiopathic Hyperglycemia R73.9 Transaminitis R74.01 Cholelithiasis K80.20 Seizure disorder G40.909 Alcohol use Z72.89 Nicotine dependence F17.200
[2021-07-02] MEDS: sodium chloride 0.9% 1,000 ML 125 ML IV ×2 (09:22→22:58)
--- NOTE | 2021-07-02 09:51 | PC.PHAR ---
pt states he takes care of his own medications-pt states he takes no rx medications
[2021-07-02 10:33] LABS: Estmated Average Glucose 82; Hemoglobin A1C 4.5 % (4.0-6.0)
[2021-07-02] MEDS: famotidine 20 mg/2 mL INJ IVP ×2 (10:35→22:00)
[2021-07-02] MEDS: enoxaparin 40 mg/0.4 mL Syringe SUBCUT (10:35)
[2021-07-02] MEDS: piperacillin-tazobactam 3.375 GM in sodium chloride 0.9% (plus) 50 ML IV ×2 (10:36→19:31)
[2021-07-02 10:43] LABS: Magnesium 1.6 mg/dL (1.7-2.3); Thyroid Stimulating Hormone 1.08 uIU/mL (0.27-4.20); Triglycerides 95 mg/dL (0-150)
[2021-07-02 10:47] LABS: Hepatitis A Antibody IgM Non-Reactive (Nonreactive); Hepatitis B Core IgM Non-Reactive (Nonreactive); Hepatitis B Surface Antigen Non-Reactive (Nonreactive); Hepatitis C Virus Antibody Non-Reactive (Nonreactive)
[2021-07-02 11:01] LABS: Glucose Point of Care 135 mg/dL (70-110)
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
[2021-07-02] MEDS: hyDRALAzine 20 mg/mL INJ 1 mL 10 MG IVP (11:27)
[2021-07-02] MEDS: acetaminophen 325 mg Tablet 650 MG PO (16:27)
[2021-07-02 17:05] LABS: Glucose Point of Care 115 mg/dL (70-110)
[2021-07-02] MEDS: magnesium sulfate premix 2 GM/50 ML PIGGYBACK IV (18:01)
[2021-07-02 20:24] LABS: SARS Covid-2 Antigen Negative (Negative)
[2021-07-02 21:47] LABS: Glucose Point of Care 122 mg/dL (70-110)
--- NOTE | 2021-07-02 23:33 | USR_ITS ---
PROCEDURE INFORMATION: Exam: US Abdomen, Limited; Right Upper Quadrant Exam date and time: 07/02/2021 11:33 PM Age: 56 years old Clinical indication: Abdominal pain; Acute; Additional info: Ruq pain TECHNIQUE: Imaging protocol: US abdomen. Real time ultrasound with image documentation. Limited exam focused on the right upper quadrant. COMPARISON: CT abdomen pelvis w con* [id number] 07/01/2021 10:23 PM FINDINGS: Liver: Normal. No masses. Gallbladder: There is a 3 cm gallstone present. Multiple smaller stones are present as well. No pericholecystic fluid. Mild gallbladder wall thickening. Common bile duct: Common bile duct diameter is 3 mm. Pancreas: Pancreas is obscured by overlying bowel gas. Right kidney: Normal. No mass. No hydronephrosis. US/US gall bladder [id number] IMPRESSION: Cholelithiasis with a 3 cm stone and mild gallbladder wall thickening.The nanotechnology engineering technologist reports a positive sonographic Lim sign, which can be seen in acute cholecystitis.
[2021-07-03] VITALS (13 sets, daily range): BP systolic 163–209; BP diastolic 85–99; PULSE 101–115; RESP 16–20; TEMP 36.8–37.9; O2SAT 92–94
[2021-07-03] MEDS: hyDRALAzine 20 mg/mL INJ 1 mL 10 MG IVP ×3 (01:09→21:43)
[2021-07-03] MEDS: HYDROmorphone 1 mg/mL INJ 1 mL IVP ×5 (01:09→17:54)
[2021-07-03] MEDS: piperacillin-tazobactam 3.375 GM in sodium chloride 0.9% (plus) 50 ML IV ×3 (02:29→17:55)
[2021-07-03] MEDS: sodium chloride 0.9% 1,000 ML 125 ML IV ×3 (06:41→22:39)
[2021-07-03 07:02] LABS: Basophils % 0.1 %; Hematocrit 41.1 % (42.0-52.0); Hemoglobin 13.8 g/dL (11.7-16.6); Lymphocytes % 5.5 %; Mean Corpuscular HGB Conc 33.6 g/dL (30.0-36.0); Mean Corpuscular Hemoglobin 32.7 pg (28.0-34.0); Mean Corpuscular Volume 97.4 fl (80-94); Monocytes # 0.8 10^3/uL (0.2-0.9); Monocytes % 4.1 %; Neutrophils # 16.49 10^3/uL (1.8-7.7); Neutrophils % 88.9 %; Nucleated Red Blood Cells % 0 %; Platelet Count 257 10^3/cmm (130-400); Red Blood Count 4.22 10^6/uL (4.1-5.3); Red Cell Distribution Width 12.8 % (12.1-15.1); White Blood Count 18.6 10^3/uL (4.0-10.0)
[2021-07-03 07:33] LABS: Alanine Aminotransferase 174 U/L (0-41); Albumin Level 3.2 g/dL (3.5-5.2); Alkaline Phosphatase 100 IU/L (40-130); Amylase 315 U/L (28-100); Anion Gap 13.6 (5-19); Aspartate Amino Transferase 42 U/L (0-40); Blood Urea Nitrogen 14 mg/dL (6-20); Carbon Dioxide 23 mmol/L (22-29); Chloride 102 mmol/L (98-107); Creatinine Clr Calc Pharmacy 150.4398; Globulin 2.6 g/dL (1.3-4.6); Glomerular Filtration Rate 139.9 mL/min (90-130); Glucose 119 mg/dL (65-115); Lipase 274 U/L (13-60); Osmolality Calculated 282 mOsm/kg (285-295); Potassium 3.6 mmol/L (3.5-5.1); Sodium 135 mmol/L (136-145); Total Bilirubin 1.9 mg/dL (0.15-1.2); Total Protein 5.8 g/dL (6.6-8.7)
[2021-07-03 07:59] LABS: Slide Review Slide Review Perform
[2021-07-03] MEDS: famotidine 20 mg/2 mL INJ IVP ×2 (09:15→21:43)
[2021-07-03] MEDS: thiamine 100 mg Tablet PO (09:15)
[2021-07-03] MEDS: enoxaparin 40 mg/0.4 mL Syringe SUBCUT (09:16)
[2021-07-03 11:49] LABS: Glucose Point of Care 118 mg/dL (70-110)
--- NOTE | 2021-07-03 11:56 | P.PN_ITS ---
Subjective Subjective: Interval history: Patient says he may feel little bit better today. He is not passing much in the way of flatus. Vitals/I&O/Wt Last Vital Signs Temp 98.9 F 07/03/21 08:00 Pulse 108 H 07/03/21 08:00 Resp 17 07/03/21 11:39 BP 192/92 07/03/21 08:00 Pulse Ox 94 07/03/21 08:00 07/02/21 07/03/21 07/03/21 22:59 06:59 14:59 Intake Total 910.833 / 2330.000 1050 / 2330.000 120 / 120 Output Total 300 / 475 175 / 475 200 / 200 Balance 610.833 / 1855.000 875 / 1855.000 -80 / -80 Weight last 48 hrs Weight 180 lb Weight 180 lb Physical Exam Narrative: EXAM NARRATIVE: Bowel sounds are hypoactive. He still has some scattered upper abdominal tenderness. Data : 07/03/21 06:26 07/03/21 06:26 Other Labs: Laboratory Tests 07/03/21 06:26 Total Bilirubin 1.9 H AST 42 H ALT 174 H Amylase 315 H Lipase 274 H Micro: Microbiology 07/02/21 00:27 Blood Culture - Preliminary Blood NEGATIVE TO DATE 07/02/21 00:00 Blood Culture - Preliminary Blood NEGATIVE TO DATE A&P Assessment and plan (1) Acute pancreatitis: Continued improvement in enzymes. We once again discussed cholecystectomy. He is leaning towards not having surgery but understands that this may be a recurring problem if it is a gallstone related episode. Status: Acute (2) Cholelithiasis: As above. Status: Acute Attestations Medical Necessity Statement*: See admitting service's notation. 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
--- NOTE | 2021-07-03 11:58 | PM.PN ---
Subjective Subjective: Interval history: Gurvinder reported his pain was a little bit better this morning. He still did not feel like eating a whole lot. Nursing later came to me and told me his urine might be a little bloody. A urinalysis has been ordered. He reports he slept very poorly last night. Medications: Reviewed: Yes Vitals/I&O/Wt Last Vital Signs Temp 98.9 F 07/03/21 08:00 Pulse 108 H 07/03/21 08:00 Resp 17 07/03/21 11:39 BP 192/92 07/03/21 08:00 Pulse Ox 94 07/03/21 08:00 07/02/21 07/03/21 07/03/21 22:59 06:59 14:59 Intake Total 910.833 / 5204.352 0476 / 2330.000 120 / 120 Output Total 300 / 300 175 / 475 200 / 200 Balance 610.833 / 980.000 875 / 1855.000 -80 / -80 Weight last 48 hrs Weight 81.647 kg Weight 81.647 kg Physical Exam Narrative: EXAM NARRATIVE: General exam is a white male, in no apparent distress Neck is supple no lymphadenopathy or thyromegaly Cardiovascular regular rate and rhythm without murmur, no S3 or S4. Slight tachycardia Lungs clear no wheezing or crackles Abdomen generalized tenderness. A few bowel sounds are noted. exam is deferred Extremities no cyanosis clubbing or edema, cap refill brisk. Pulses intact. Data : 07/03/21 06:26 07/03/21 06:26 Micro: Microbiology 07/02/21 00:27 Blood Culture - Preliminary Blood NEGATIVE TO DATE 07/02/21 00:00 Blood Culture - Preliminary Blood NEGATIVE TO DATE A&P Assessment and plan (1) Pancreatitis: Acute pancreatitis is present. Triglyceride level was checked and normal. Could be secondary to alcohol use. N.p.o. with the exception of ice chips, a few clear liquids. I discussed with him I would advance his diet if he starts to get hungry and desires this. Pain control. Add OxyIR as needed Repeat lipase tomorrow Continue hydration Continue Zosyn for now empirically as this was started in the ER, question of cholecystitis at that time. Status: Inactive Qualifiers: Acute pancreatitis complication: unspecified Chronicity: acute Pancreatitis type: idiopathic Qualified Code(s): K85.00 - Idiopathic acute pancreatitis without necrosis or infection (2) Hyperglycemia: Hemoglobin A1c was normal Status: Acute (3) Transaminitis: Hepatitis panel negative Appropriate imaging has already been done Appreciate surgical consultation. Secondary to pancreatitis he may be a candidate for cholecystectomy in the future. Surgery has discussed with the patient and for now he may decline. Status: Acute (4) Cholelithiasis: See notations above Status: Acute (5) Seizure disorder: Patient reports he only has a seizure if he gets sleep deprived or has another significant stressor. Monitor closely Seizure precautions Note that he has had some type of brain surgery in the past to reduce seizure activity. Status: Acute (6) Alcohol use: Avoid alcohol Monitor for withdrawal Status: Acute (7) Nicotine dependence: Counseled on nicotine avoidance Status: Acute Additional A&P Information Elevated blood pressure. Hydralazine as needed. Add amlodipine 5 mg daily. Full code Lovenox for DVT prophylaxis. Pepcid for GI prophylaxis Attestations Medical Necessity Statement*: Needs continued hospitalization secondary to acute pancreatitis, not yet ready for full diet and cannot keep himself completely hydrated. 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
[2021-07-03 11:59] LABS: Add Urine Culture? Yes; Add Urine Microscopic? YES; Bacteria Urine 2+ /hpf; Bilirubin Urine Neg (Negative); Blood Urine 3+ (Negative); Glucose Urine UA Norm (Normal); Ketones Urine Negative (Negative); Leukocyte Esterase Urine 2+ (Negative); Nitrate Urine Negative (Negative); Protein Urine 1+ (Negative); Specific Gravity, Urine 1.015 (1.005-1.030); Squamous Epithelial Cell Urine 0-4 /hpf (0-5); Urine Appearance Cloudy (CLEAR); Urine Color Dark Yellow (Yellow); Urobilinogen Urine Norm (Negative); WBC Urine 25-40 /hpf (0-5); pH Urine 5 (5-7)
[2021-07-03] MEDS: amlodipine 5 mg Tablet PO (13:10)
[2021-07-03] MEDS: LORazepam 2 mg/mL INJ 1 mL 0.5 MG IVP (13:10)
[2021-07-03 18:31] LABS: Glucose Point of Care 102 mg/dL (70-110)
[2021-07-03 20:23] LABS: Glucose Point of Care 109 mg/dL (70-110)
--- NOTE | 2021-07-03 21:30 | PC.NURSE ---
i reported high temp 100.3 and high pulse 101 to nurse
[2021-07-04] VITALS (14 sets, daily range): BP systolic 173–201; BP diastolic 89–109; PULSE 95–116; RESP 16–20; TEMP 36.8–37.6; O2SAT 92–95
[2021-07-04] MEDS: HYDROmorphone 1 mg/mL INJ 1 mL IVP ×4 (00:26→21:48)
[2021-07-04] MEDS: oxyCODONE 5 mg IR Tab/Cap PO ×2 (02:43→10:09)
[2021-07-04 03:24] LABS: Basophils % 0.1 %; Hematocrit 39.2 % (42.0-52.0); Hemoglobin 13.2 g/dL (11.7-16.6); Lymphocytes # 1.2 10^3/uL (0.8-4.8); Lymphocytes % 8.6 %; Mean Corpuscular HGB Conc 33.7 g/dL (30.0-36.0); Mean Corpuscular Hemoglobin 32.4 pg (28.0-34.0); Mean Corpuscular Volume 96.3 fl (80-94); Mean Platelet Volume 10.8 fL (7.4-10.4); Monocytes # 0.8 10^3/uL (0.2-0.9); Monocytes % 5.6 %; Neutrophils # 12.23 10^3/uL (1.8-7.7); Neutrophils % 85.1 %; Nucleated Red Blood Cells % 0 %; Platelet Count 230 10^3/cmm (130-400); Red Blood Count 4.07 10^6/uL (4.1-5.3); Red Cell Distribution Width 12.1 % (12.1-15.1); White Blood Count 14.4 10^3/uL (4.0-10.0)
[2021-07-04] MEDS: piperacillin-tazobactam 3.375 GM in sodium chloride 0.9% (plus) 50 ML IV ×3 (03:29→18:39)
[2021-07-04 03:41] LABS: Alanine Aminotransferase 110 U/L (0-41); Albumin Level 3.1 g/dL (3.5-5.2); Alkaline Phosphatase 86 IU/L (40-130); Amylase 126 U/L (28-100); Anion Gap 14.6 (5-19); Aspartate Amino Transferase 26 U/L (0-40); Blood Urea Nitrogen 8 mg/dL (6-20); Calcium 8.1 mg/dL (8.5-10.5); Carbon Dioxide 22 mmol/L (22-29); Chloride 98 mmol/L (98-107); Globulin 2.9 g/dL (1.3-4.6); Glomerular Filtration Rate 172.6 mL/min (90-130); Glucose 107 mg/dL (65-115); Lipase 90 U/L (13-60); Osmolality Calculated 271 mOsm/kg (285-295); Potassium 3.6 mmol/L (3.5-5.1); Sodium 131 mmol/L (136-145); Total Bilirubin 1.6 mg/dL (0.15-1.2)
[2021-07-04 03:59] LABS: Slide Review Slide Review Perform
--- NOTE | 2021-07-04 04:35 | PC.NURSE ---
SHIFT SUMMARY-Patient was bloated and having some belching and passing gas. No bowel movement. experienced quite a bit of pain throughout the night that was relieved by position change and medication. The dilaudid helped for a short period of time, but he was struggling to get comfortable and wasnt able to get much rest. Gave PRN oxycodone once and seemed to help him rest better. IV antibiotics running. Clear liquid diet. Out put and labs have improved. On droplet percautions rapid test was neg, awaiting the send out covid test. Urine is still dark, but is clear. Not doing anything the galstones at this time. Blood pressure is still high and needs monitored.
--- NOTE | 2021-07-04 06:10 | PM.PN ---
Subjective Subjective: Interval history: The patient indicates that he is starting to feel better each day. He is not aware of any obvious flatus yet but says he has been up moving around in his room. His appetite is starting to return but he still is not terribly hungry. Vitals/I&O/Wt Last Vital Signs Temp 99.5 F 07/04/21 04:00 Pulse 95 07/04/21 05:51 Resp 18 07/04/21 04:00 BP 185/89 07/04/21 04:00 Pulse Ox 95 07/04/21 04:00 07/03/21 07/03/21 07/04/21 14:59 22:59 06:59 Intake Total 1070 / 2161.25 1091.25 / 2161.25 Output Total 200 / 2170 850 / 2170 1120 / 2170 Balance 870 / -8.75 241.25 / -8.75 -1120 / -8.75 Weight last 48 hrs Weight 180 lb Physical Exam Narrative: EXAM NARRATIVE: The abdomen is clearly less tender each day that I see him. Data : 07/04/21 02:57 07/04/21 02:57 A&P Assessment and plan (1) Acute pancreatitis: Enzymes continue to improve, as does the patient subjectively. We discussed cholecystectomies briefly once again this morning but he is still of the mindset that he would simply like to get better and try to get out of the hospital without surgery if possible. I may not continue to see daily, as the patient is not interested in surgery at this time. Please call if I can be of further help. Status: Acute Attestations Medical Necessity Statement*: See admitting service's notation. 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
[2021-07-04] MEDS: sodium chloride 0.9% 1,000 ML 125 ML IV ×2 (06:23→16:02)
[2021-07-04 06:37] LABS: Glucose Point of Care 115 mg/dL (70-110)
--- NOTE | 2021-07-04 07:17 | PC.NURSE ---
I reported the high bp to the nurse 201/109
--- NOTE | 2021-07-04 09:53 | P.PN_ITS ---
Subjective Subjective: Interval history: Reports his abdomen is better. Heart rate, blood pressure significantly up consistent with withdrawal. Medications: Reviewed: Yes Vitals/I&O/Wt Last Vital Signs Temp 98.2 F 07/04/21 07:17 Pulse 98 07/04/21 07:17 Resp 16 07/04/21 07:17 BP 201/109 07/04/21 07:17 Pulse Ox 93 07/04/21 07:17 07/03/21 07/04/21 07/04/21 22:59 06:59 14:59 Intake Total 1091.25 / 2161.25 1000 / 3161.25 120 / 120 Output Total 850 / 1050 1270 / 2320 300 / 300 Balance 241.25 / 1111.25 -270 / 841.25 -180 / -180 Physical Exam 2 Narrative: EXAM NARRATIVE: General exam is a white male, in no apparent distress, but fidgets constantly Neck is supple no lymphadenopathy or thyromegaly Cardiovascular regular rate and rhythm without murmur, no S3 or S4. Slight tachycardia Lungs clear no wheezing or crackles Abdomen generalized tenderness. A few bowel sounds are noted. Extremities no cyanosis clubbing or edema, cap refill brisk. Pulses intact. Data : 07/04/21 02:57 07/04/21 02:57 Micro: Microbiology 07/03/21 10:00 Urine Culture - Preliminary Urine,Clean Catch A&P Assessment and plan (1) Pancreatitis: Acute pancreatitis is present. Triglyceride level was checked and normal. Could be secondary to alcohol use. He is improved. Advance diet to full liquids. Pain control. Add OxyIR as needed Repeat lipase tomorrow Continue hydration Continue Zosyn for now empirically as this was started in the ER, question of cholecystitis at that time. Unfortunately he appears to be having alcohol withdrawal at this time and will initiate CIWA protocol Status: Inactive Qualifiers: Acute pancreatitis complication: unspecified Chronicity: acute Pancreatitis type: idiopathic Qualified Code(s): K85.00 - Idiopathic acute pancreatitis without necrosis or infection (2) Hyperglycemia: Hemoglobin A1c was normal Status: Acute (3) Transaminitis: Hepatitis panel negative Appropriate imaging has already been done Appreciate surgical consultation. Secondary to pancreatitis he may be a candidate for cholecystectomy in the future. Surgery has discussed with the sharda hernandes and for now he may decline. Transaminitis elevation significantly improved. Status: Acute (4) Cholelithiasis: See notations above Status: Acute (5) Seizure disorder: Patient reports he only has a seizure if he gets sleep deprived or has another significant stressor. Monitor closely Seizure precautions Note that he has had some type of brain surgery in the past to reduce seizure activity. Status: Acute (6) Alcohol use: Avoid alcohol He appears to be actively withdrawing. Initiate CIWA protocol Status: Acute (7) Nicotine dependence: Counseled on nicotine avoidance Status: Acute Additional A&P Information Elevated blood pressure. Hydralazine as needed. Amlodipine added Full code Lovenox for DVT prophylaxis. Pepcid for GI prophylaxis Attestations Medical Necessity Statement*: Needs continued hospitalization for active alcohol withdrawal. 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
[2021-07-04] MEDS: famotidine 20 mg/2 mL INJ IVP ×2 (10:08→22:35)
[2021-07-04] MEDS: thiamine 100 mg Tablet PO (10:09)
[2021-07-04] MEDS: hyDRALAzine 20 mg/mL INJ 1 mL 10 MG IVP (10:09)
[2021-07-04] MEDS: enoxaparin 40 mg/0.4 mL Syringe SUBCUT (10:17)
[2021-07-04] MEDS: amlodipine 10 mg Tablet PO (10:19)
[2021-07-04 11:49] LABS: Glucose Point of Care 105 mg/dL (70-110)
[2021-07-04 16:51] LABS: Glucose Point of Care 119 mg/dL (70-110)
[2021-07-04 20:32] LABS: Glucose Point of Care 105 mg/dL (70-110)
[2021-07-05] VITALS (7 sets, daily range): BP systolic 149–176; BP diastolic 79–99; PULSE 95–107; RESP 12–18; TEMP 36.9–37.8; O2SAT 92–94
[2021-07-05] MEDS: sodium chloride 0.9% 1,000 ML 125 ML IV ×2 (00:28→18:54)
[2021-07-05] MEDS: piperacillin-tazobactam 3.375 GM in sodium chloride 0.9% (plus) 50 ML IV ×3 (02:30→18:53)
[2021-07-05] MEDS: HYDROmorphone 1 mg/mL INJ 1 mL IVP (04:11)
[2021-07-05 05:29] LABS: Basophils % 0.3 %; Eosinophils % 0.2 %; Hematocrit 36.7 % (42.0-52.0); Hemoglobin 12.7 g/dL (11.7-16.6); Lymphocytes # 1.2 10^3/uL (0.8-4.8); Lymphocytes % 9.5 %; Mean Corpuscular HGB Conc 34.6 g/dL (30.0-36.0); Mean Corpuscular Hemoglobin 32.7 pg (28.0-34.0); Mean Corpuscular Volume 94.6 fl (80-94); Mean Platelet Volume 10.6 fL (7.4-10.4); Monocytes % 7.5 %; Neutrophils # 10.78 10^3/uL (1.8-7.7); Neutrophils % 82.1 %; Nucleated Red Blood Cells % 0 %; Platelet Count 251 10^3/cmm (130-400); Red Blood Count 3.88 10^6/uL (4.1-5.3); Red Cell Distribution Width 11.9 % (12.1-15.1); White Blood Count 13.1 10^3/uL (4.0-10.0)
[2021-07-05 05:49] LABS: Alanine Aminotransferase 73 U/L (0-41); Albumin Level 2.8 g/dL (3.5-5.2); Alkaline Phosphatase 88 IU/L (40-130); Anion Gap 14.1 (5-19); Aspartate Amino Transferase 24 U/L (0-40); Blood Urea Nitrogen 10 mg/dL (6-20); Calcium 7.7 mg/dL (8.5-10.5); Carbon Dioxide 23 mmol/L (22-29); Chloride 98 mmol/L (98-107); Globulin 3.1 g/dL (1.3-4.6); Glomerular Filtration Rate 172.6 mL/min (90-130); Glucose 106 mg/dL (65-115); Osmolality Calculated 273 mOsm/kg (285-295); Potassium 3.1 mmol/L (3.5-5.1); Sodium 132 mmol/L (136-145); Total Bilirubin 1.2 mg/dL (0.15-1.2); Total Protein 5.9 g/dL (6.6-8.7)
[2021-07-05 05:55] LABS: Amylase 51 U/L (28-100); Lipase 24 U/L (13-60)
[2021-07-05 06:50] LABS: Glucose Point of Care 97 mg/dL (70-110)
[2021-07-05] MEDS: potassium chloride ER 20 mEq Tablet 40 MEQ PO ×2 (09:54→12:19)
[2021-07-05] MEDS: thiamine 100 mg Tablet PO (09:54)
[2021-07-05] MEDS: multivitamin therapeutic Tablet 1 TAB PO (09:54)
[2021-07-05] MEDS: amlodipine 10 mg Tablet PO (09:54)
[2021-07-05] MEDS: enoxaparin 40 mg/0.4 mL Syringe SUBCUT (09:54)
[2021-07-05] MEDS: folic acid 1 mg Tablet PO (09:54)
--- NOTE | 2021-07-05 11:39 | PC.CHAP ---
Pastoral Care Encounter/Spiritual Assessment Type of Contact [] Declined grill associate visit [] Patient/Family/Request visit [] Outpatient visit [] Follow-up visit [] Physician referral [] Code/Alert [] Routine visit [] Staff referral [] Actively dying [] Patient sleeping [] Family support [] [] Out of room [] Palliative care [] [] Receiving care in room [] Pre-surgical visit [] Trauma [] Long length of stay [] ICU visit [x] Other: Isolation Relational/Emotional Strength [] Patient feels connected with others/family/visitors/staff [] Distress [] Loneliness/isolation [] Abandonment Spirituality of Patient [] Person of Lisandra [] Attends Adventism of their Lisandra [] Believes in Prayer [] Reads Bible or Bahai materials [] There are Spiritual issues to be addressed Reel System Operator Interventions [] Prayer [] Active listening [] Non-anxious presence [] Spiritual/emotional support [] Crisis/trauma care [] Spiritual counseling [] Bereavement support [] Provided bereavement packet [] Provided Bible/devotional materials [] Provided toy/stuffed animal, coloring book to patient or family member [] Provided Communion [] Anointing/[place] [] Salvation [] Completed spiritual assessment [] Other: Impact on Illness or Injury [] Angry [] Fearful [] Anxious [] Often cries [] Exhaustion [] Unable to work [] Unable to attend gnosticist [] Unable to walk/stand [] Unable to read [] Unable to drive [] Unable to eat/drink [] Unable to sleep [] Unable to be with family [] Patient intubated [] Other: Summary Isolation Time spent with patient 5 mins
--- NOTE | 2021-07-05 12:15 | PM.PN ---
Subjective Subjective: Interval history: Gurvinder reports he still has a little bit of discomfort. He feels full quickly. Blood pressures have been better as well as heart rate. Medications: Reviewed: Yes Vitals/I&O/Wt Last Vital Signs Temp 99.5 F 07/05/21 12:00 Pulse 105 H 07/05/21 12:00 Resp 14 07/05/21 12:00 BP 176/89 07/05/21 12:00 Pulse Ox 92 07/05/21 12:00 07/04/21 07/05/21 07/05/21 22:59 06:59 14:59 Intake Total 50 / 1270 1490 / 2760 1480 / 1480 Output Total 1500 / 1800 950 / 2750 400 / 400 Balance -1450 / -530 540 / 10 1080 / 1080 Physical Exam Narrative: EXAM NARRATIVE: General exam no distress Cardiovascular regular rate and rhythm without murmur, no S3 or S4. Slight tachycardia Lungs clear no wheezing or crackles Abdomen slight tenderness Extremities no cyanosis clubbing or edema, cap refill brisk. Pulses intact. Data : 07/05/21 05:10 07/05/21 05:10 Micro: Microbiology 07/03/21 10:00 Urine Culture - Final Urine,Clean Catch A&P Assessment and plan (1) Pancreatitis: Acute pancreatitis is present. Triglyceride level was checked and normal. Could be secondary to alcohol use. He is improved. Again improved with normal enzyme levels, and LFTs have returned to normal. Pain control. Add OxyIR as needed Continue hydration Continue Zosyn for now empirically as this was started in the ER, question of cholecystitis at that time. Unfortunately he appears to be having alcohol withdrawal at this time and will initiate CIWA protocol. He still seems to have some withdrawal symptomatology. Status: Inactive Qualifiers: Acute pancreatitis complication: unspecified Chronicity: acute Pancreatitis type: idiopathic Qualified Code(s): K85.00 - Idiopathic acute pancreatitis without necrosis or infection (2) Hyperglycemia: Hemoglobin A1c was normal Status: Acute (3) Transaminitis: Hepatitis panel negative Appropriate imaging has already been done Appreciate surgical consultation. Secondary to pancreatitis he may be a candidate for cholecystectomy in the future. Surgery has discussed with the patient and for now he may decline. Transaminitis elevation significantly improved. Discussed with patient to avoid all alcohol. Status: Acute (4) Cholelithiasis: See notations above Status: Acute (5) Seizure disorder: Patient reports he only has a seizure if he gets sleep deprived or has another significant stressor. Monitor closely Seizure precautions Note that he has had some type of brain surgery in the past to reduce seizure activity. Status: Acute (6) Alcohol use: Avoid alcohol He appears to be actively withdrawing. Initiate CIWA protocol Status: Acute (7) Nicotine dependence: Counseled on nicotine avoidance Status: Acute Additional A&P Information Elevated blood pressure. Hydralazine as needed. Amlodipine added Hypokalemia. Supplement. Check magnesium level. Full code Lovenox for DVT prophylaxis. Pepcid for GI prophylaxis Suspect he can be discharged tomorrow. Attestations Medical Necessity Statement*: Needs continued hospitalization secondary to persistent abdominal pain, leukocytosis in this patient with likely alcohol withdrawal and resolving 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
[2021-07-05] MEDS: famotidine 20 mg/2 mL INJ IVP ×2 (12:18→22:25)
[2021-07-05 12:23] LABS: Glucose Point of Care 108 mg/dL (70-110)
[2021-07-05 17:02] LABS: Glucose Point of Care 106 mg/dL (70-110)
[2021-07-05] MEDS: sennosides-docusate Tablet 1 TAB PO (18:54)
[2021-07-05 21:00] LABS: Glucose Point of Care 115 mg/dL (70-110)
[2021-07-06 03:12] LABS: Basophils % 0.3 %; Eosinophils % 0.3 %; Hematocrit 36.6 % (42.0-52.0); Hemoglobin 12.4 g/dL (11.7-16.6); Lymphocytes # 1.1 10^3/uL (0.8-4.8); Lymphocytes % 8.3 %; Mean Corpuscular HGB Conc 33.9 g/dL (30.0-36.0); Mean Corpuscular Hemoglobin 31.8 pg (28.0-34.0); Mean Corpuscular Volume 93.8 fl (80-94); Monocytes # 1.2 10^3/uL (0.2-0.9); Monocytes % 8.9 %; Neutrophils # 10.88 10^3/uL (1.8-7.7); Neutrophils % 81.2 %; Nucleated Red Blood Cells % 0 %; Platelet Count 278 10^3/cmm (130-400); Red Cell Distribution Width 11.9 % (12.1-15.1); White Blood Count 13.4 10^3/uL (4.0-10.0)
[2021-07-06 03:33] LABS: Alanine Aminotransferase 76 U/L (0-41); Albumin Level 2.7 g/dL (3.5-5.2); Alkaline Phosphatase 128 IU/L (40-130); Aspartate Amino Transferase 39 U/L (0-40); Blood Urea Nitrogen 11 mg/dL (6-20); Calcium 7.9 mg/dL (8.5-10.5); Carbon Dioxide 21 mmol/L (22-29); Chloride 98 mmol/L (98-107); Globulin 3.3 g/dL (1.3-4.6); Glomerular Filtration Rate 223.3 mL/min (90-130); Glucose 104 mg/dL (65-115); Osmolality Calculated 272 mOsm/kg (285-295); Sodium 131 mmol/L (136-145); Total Bilirubin 1.2 mg/dL (0.15-1.2)
[2021-07-06 03:47] LABS: Anion Gap 15.3 (5-19); Potassium 3.3 mmol/L (3.5-5.1)
[2021-07-06 03:51] VITALS: BP 150/92; PULSE 98; RESP 18; TEMP 37.6; O2SAT 95
[2021-07-06] MEDS: sodium chloride 0.9% 1,000 ML 125 ML IV (04:08)
[2021-07-06] MEDS: piperacillin-tazobactam 3.375 GM in sodium chloride 0.9% (plus) 50 ML IV (04:08)
[2021-07-06 06:38] LABS: Glucose Point of Care 105 mg/dL (70-110)
[2021-07-06 08:00] VITALS: BP 155/92; PULSE 99; RESP 16; TEMP 37.3; O2SAT 93
[2021-07-06] MEDS: thiamine 100 mg Tablet PO (10:19)
[2021-07-06] MEDS: folic acid 1 mg Tablet PO (10:20)
[2021-07-06] MEDS: amlodipine 10 mg Tablet PO (10:20)
[2021-07-06] MEDS: sennosides-docusate Tablet 1 TAB PO (10:20)
[2021-07-06] MEDS: multivitamin therapeutic Tablet 1 TAB PO (10:20)
[2021-07-06 11:03] LABS: Glucose Point of Care 126 mg/dL (70-110)
--- NOTE | 2021-07-06 11:16 | P.DS_ITS ---
Discharge Providers Date of Admission: 07/02/21 02:37 Date of Discharge: July 06, 2021 Attending Provider at Admission: Daija Zabala MD Attending Provider at Discharge: Mike Ruiz MD Diagnoses at Discharge Discharge Diagnosis (1) Pancreatitis: Status: Inactive Qualifiers: Acute pancreatitis complication: unspecified Chronicity: acute Pancreatitis type: idiopathic Qualified Code(s): K85.00 - Idiopathic acute pancreatitis without necrosis or infection (2) Hyperglycemia: Status: Acute (3) Transaminitis: Status: Acute (4) Cholelithiasis: Status: Acute (5) Seizure disorder: Status: Acute (6) Alcohol use: Status: Acute (7) Nicotine dependence: Status: Acute Reason for Visit Reason for Visit: ABD Pain Nausea Hospital Course Hospital Course Mr. Carranza is a 56-year-old white male who presented to the emergency department with abdominal discomfort. He was found to have markedly elevated lipase, elevated LFTs, and a CT scan consistent with pancreatitis that was uncomplicated. No evidence of dilated bile ducts were noted. Gallbladder ultrasound demonstrated cholelithiasis but no bile duct obstruction or dilation. No evidence of cholecystitis was seen on CT scan or gallbladder ultrasound. He was placed on Zosyn on admission. He was initially n.p.o. and then made clear liquids. Liver function tests, as well as lipase and clinical status were followed. During his hospital stay he gradually improved. Surgery was consulted secondary to the constellation of gallstones as well as 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 A cholecystectomy was offered, but patient refused. Alcohol use was also a potential cause of his 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 He was counseled to stop alcohol, and withdrawal protocol was ordered during his hospital stay. Triglyceride level was checked and normal. By July 06 he was asking to be discharged. Abdominal pain was markedly improved but still present in the epigastric area. He was able to tolerate a full liquid diet, and some solids without difficulty. He will discharge on Cipro and Flagyl for 5 days secondary to concern of the potential cholecystitis. Discharge AST 39, ALT 76, alk phos 128. Last lipase performed was 24 the day previous. Covid PCR was pending. This order has been missed on admission but rapid was negative. He also had an MRCP performed which demonstrated similar findings to CT scan. No cholecystitis was noted. No evidence of alcohol withdrawal was present on discharge. Heart rate was 99. Norvasc was added during his hospital stay secondary to hypertension. He was instructed to return for any worsening. Physical Exam Narrative: EXAM NARRATIVE: General exam no apparent distress Neck is supple Cardiovascular regular rate and rhythm Lungs clear Abdomen slight tenderness epigastric area. Positive bowel sounds. Extremities no cyanosis clubbing or edema Discharge Data Data Completed and Pending: Completed Studies During Hospitalization Category Date Time Status CT abdomen pelvis w con* [id number] Urge nt Cat Scan 07/01/21 21:23 Completed MR MRCP [id number] Urg ent MRI 07/02/21 00:28 Completed US gall bladder 7 [id number] Urgent Ultrasound 07/02/21 23:33 Completed Pending at discharge Category Date Time Status Blood Culture Sta t Lab 07/01/21 23:43 Results Coronavirus Test [facility] 07/02/21 12:45 Received Labs from last 24 hours 07/06/21 07/06/21 07/06/21 10:58 06:35 02:27 WBC RBC Hgb Hct MCV MCH MCHC RDW Plt Count MPV Neut % (Auto) Lymph % (Auto) [place] % (Auto) Eos % (Auto) Baso % (Auto) Neut # (Auto) Lymph # (Auto) [place] # (Auto) Eos # (Auto) Baso # (Auto) Nucleated RBC % (a uto) Nucleated RBCs # Sodium 131 L Potassium 3.3 L Chloride 98 Carbon Dioxide 21 L Anion Gap 15.3 BUN 11 Creatinine 0.4 L GFR Calculation 223.3 H Glucose 104 POC Glucose 126 H 105 Calculated Osmolal ity 272 L Calcium 7.9 L Total Bilirubin 1.2 AST 39 ALT 76 H Alkaline Phosphata se 128 Total Protein 6.0 L Albumin 2.7 L Globulin 3.3 Nasal/Oral COVID-1 9 PCR 07/06/21 07/05/21 07/05/21 02:27 20:53 16:54 WBC 13.4 H RBC 3.90 L Hgb 12.4 Hct 36.6 L MCV 93.8 MCH 31.8 MCHC 33.9 RDW 11.9 L Plt Count 278 MPV 11.0 H Neut % (Auto) 81.2 Lymph % (Auto) 8.3 [place] % (Auto) 8.9 Eos % (Auto) 0.3 Baso % (Auto) 0.3 Neut # (Auto) 10.88 H Lymph # (Auto) 1.1 [place] # (Auto) 1.2 H Eos # (Auto) 0.0 Baso # (Auto) 0.0 Nucleated RBC % (a uto) 0 Nucleated RBCs # 0.0 Sodium Potassium Chloride Carbon Dioxide Anion Gap BUN Creatinine GFR Calculation Glucose POC Glucose 115 H 106 Calculated Osmolal ity Calcium Total Bilirubin AST ALT Alkaline Phosphata se Total Protein Albumin Globulin Nasal/Oral COVID-1 9 PCR 07/05/21 07/05/21 12:45 12:04 WBC RBC Hgb Hct MCV MCH MCHC RDW Plt Count MPV Neut % (Auto) Lymph % (Auto) [place] % (Auto) Eos % (Auto) Baso % (Auto) Neut # (Auto) Lymph # (Auto) [place] # (Auto) Eos # (Auto) Baso # (Auto) Nucleated RBC % (a uto) Nucleated RBCs # Sodium Potassium Chloride Carbon Dioxide Anion Gap BUN Creatinine GFR Calculation Glucose POC Glucose 108 Calculated Osmolal ity Calcium Total Bilirubin AST ALT Alkaline Phosphata se Total Protein Albumin Globulin Nasal/Oral COVID-1 9 PCR Pending Vitals: Last Vital Signs Temp 99.2 F 07/06/21 08:00 Pulse 99 07/06/21 08:00 Resp 16 07/06/21 08:00 BP 155/92 07/06/21 08:00 Pulse Ox 93 07/06/21 08:00 Discharge Plan Discharge Patient Disposition: Home Condition: Stable Prescriptions: New amlodipine 10 mg Tablet 10 mg PO DAILY Qty: 30 RF: 0 ciprofloxacin HCl [Cipro] 500 mg tablet 500 mg PO BID Qty: 10 RF: 0 metronidazole [Flagyl] 500 mg tablet 500 mg PO TID Qty: 15 RF: 0 pantoprazole [Protonix] 40 mg tablet,delayed release (DR/EC) 40 mg PO DAILY Qty: 30 RF: 0 Continued multivitamin Tablet 1 tab PO QAM RF: 0 Discontinued Aspir-81 81 mg Tablet,Delayed Release (Dr/Ec) 81 mg PO QAM RF: 0 Discharge Orders: Discharge Order (Routine); Ordered 07/06/21 Ordered By: Mike Ruiz Discharge Diet: Full LIquid Discharge Activity: Increase activity as tolerated Patient Instructions: Opioid Safety Activity Restrictions/Additional Instructions: Please arrange follow up with PCP in 3-4 days Low-fat diet, gradual introduction Return for any worsening Avoid all alcohol. Discharge Attestations Time Spent in Discharge Care*: greater than 30 min Quality Metrics Clinical Quality Measures During this hospital stay, did patient experience: None Coding Level of Care Code Acute Chg FW DC note Diagnoses Pancreatitis K85.00 Acute pancreatitis complication: unspecified Chronicity: acute Pancreatitis type: idiopathic Hyperglycemia R73.9 Transaminitis R74.01 Cholelithiasis K80.20 Seizure disorder G40.909 Alcohol use Z72.89 Nicotine dependence F17.200
[2021-07-06 12:00] VITALS: BP 166/96; PULSE 112; RESP 18; TEMP 37.4; O2SAT 94
[2021-07-06] MEDS: famotidine 20 mg/2 mL INJ IVP (12:08)
[2021-07-06] MEDS: enoxaparin 40 mg/0.4 mL Syringe SUBCUT (12:08)
[2021-07-06] MEDS: potassium chloride ER 20 mEq Tablet 40 MEQ PO (12:09)
[2021-07-06 15:00] VITALS: BP 166/96; PULSE 112; RESP 18; TEMP 37.4; O2SAT 94
[2021-07-06 16:25] LABS: Coronavirus Test Green County Not Detected
== END 2021-07-06 15:01 | disposition home or self-care (01) | DRG 439 ==
LOC: ER 07-02 06:57 → MEDSURG 07-02 07:11
PROVIDERS: Surgery; Admitting Provider Hospitalist; Emergency Provider Emergency Medicine; Visit Provider Internal Medicine
DX: K85.20 Alcohol induced acute pancreatitis without necrosis or infection (principal); F10.139 Alcohol abuse with withdrawal, unspecified; F17.210 Nicotine dependence, cigarettes, uncomplicated; R73.9 Hyperglycemia, unspecified; K80.20 Calculus of gallbladder without cholecystitis without obstruction; G40.909 Epilepsy, unspecified, not intractable, without status epilepticus; K57.90 Diverticulosis of intestine, part unspecified, without perforation or abscess without bleeding
CPT/HCPCS: 36415; 36416; 74177; 74181; 76705; 80053; 80074; 80076; 81001; 82150; 82962; 83036; 83605; 83690; 83735; 84443; 84478; 85007; 85025; 85027; 86140; 87040; 87086; 87426; 87635; 96365; 96367; 96372; 96375; 96376; 99285; 99291; J0360; J1170; J1650; J2060; J2270; J2405; J2543; J3370; J3475; J3490; J7030; J7050; Q9967; S0030

== ENCOUNTER 2022-10-23 15:54 | Inpatient (IN) | payer SELFPAY ==
[2022-10-23 16:06] VITALS: BP 207/110; PULSE 78; RESP 14; TEMP 36.7; O2SAT 98; BMI 28.1
[2022-10-23 19:58] LABS: Basophils % 0.1 %; Eosinophils % 0.1 %; Hematocrit 51.5 % (42.0-52.0); Hemoglobin 17.6 g/dL (11.7-16.6); Lymphocytes # 1.9 10^3/uL (0.8-4.8); Lymphocytes % 11.8 %; Mean Corpuscular HGB Conc 34.2 g/dL (30.0-36.0); Mean Corpuscular Hemoglobin 31.8 pg (28.0-34.0); Mean Corpuscular Volume 93.1 fl (80-94); Mean Platelet Volume 10.3 fL (7.4-10.4); Monocytes # 0.5 10^3/uL (0.2-0.9); Neutrophils # 13.72 10^3/uL (1.8-7.7); Neutrophils % 84.6 %; Nucleated Red Blood Cells % 0 %; Platelet Count 465 10^3/cmm (130-400); Red Blood Count 5.53 10^6/uL (4.1-5.3); Red Cell Distribution Width 11.9 % (12.1-15.1); White Blood Count 16.2 10^3/uL (4.0-10.0)
[2022-10-23 20:09] LABS: Albumin Level 4.8 g/dL (3.5-5.2); Alkaline Phosphatase 249 U/L (40-130); Blood Urea Nitrogen 17 mg/dL (6-20); Calcium 10.1 mg/dL (8.5-10.5); Carbon Dioxide 27 mmol/L (22-29); Chloride 96 mmol/L (98-107); Creatinine Clr Calc Pharmacy 93.7466; Globulin 4.2 g/dL (1.3-4.6); Glomerular Filtration Rate 87.3 mL/min (90-130); Glucose 179 mg/dL (65-115); Osmolality Calculated 290 mOsm/kg (285-295); Sodium 137 mmol/L (136-145); Total Bilirubin 3.6 mg/dL (0.15-1.2)
[2022-10-23 20:21] LABS: Alanine Aminotransferase 1598 U/L (0-41); Aspartate Amino Transferase 731 U/L (0-40); Lipase 1962 U/L (13-60)
--- NOTE | 2022-10-23 20:26 | USR_ITS ---
PROCEDURE INFORMATION: Exam: US Abdomen, Limited; Right Upper Quadrant Exam date and time: 10/23/2022 8:40 PM Age: 57 years old Clinical indication: Abdominal pain; Other: Ruq with n+v x 2 days; Additional info: Abd pain TECHNIQUE: Imaging protocol: Real time ultrasound of the abdomen with image documentation. Limited exam focused on the right upper quadrant. COMPARISON: US gall bladder [id number] 07/02/2021 12:02 AM FINDINGS: Liver: Hepatic steatosis. Gallbladder: Cholelithiasis, positive Lim's sign and gallbladder wall thickening to 6.7 mm concerning for an acute cholecystitis. Biliary ducts: Normal. No stones. No dilation. Pancreas: Visualized pancreas is unremarkable. Right kidney: Normal. No mass. No hydronephrosis. 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 US/US gall bladder [id number] IMPRESSION: 1. Cholelithiasis, positive Lim's sign and gallbladder wall thickening to 6.7 mm concerning for an acute cholecystitis. 2. Hepatic steatosis. 3. 

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
[2022-10-23 20:47] VITALS: RESP 16; O2SAT 97
[2022-10-23] MEDS: ondansetron 2 mg/ML SDV 2 mL 4 MG IVP (20:47)
[2022-10-23] MEDS: morphine 4 mg/mL SDV 1 mL IVP (20:47)
[2022-10-23] MEDS: sodium chloride 0.9% 1,000 ML 999 ML IV (20:47)
--- NOTE | 2022-10-23 21:11 | MRR_ITS ---
PROCEDURE INFORMATION: Exam: MR Abdomen Without Contrast Exam date and time: 10/23/2022 9:50 PM Age: 57 years old Clinical indication: Abdominal pain; Additional info: Abd pain TECHNIQUE: Imaging protocol: Magnetic resonance imaging of the abdomen without contrast. COMPARISON: 1. MR MRCP [id number] 07/02/2021 1:16 AM 2. US gall bladder [id number] 10/23/2022 8:40 PM FINDINGS: Liver: Liver is normal in size with no significant hepatic steatosis by MRI criteria. There is a tiny T2 hyperintense focus in the inferior right hepatic lobe measuring 6 mm, likely hepatic cyst. Another probable hepatic cyst is noted in the left lobe, measuring about 8 mm. Limited MRCP images demonstrate no significant intrahepatic or extrahepatic bile duct dilatation or obvious biliary stricture. Multiple gallbladder calculi are noted in the gallbladder lumen measuring up to 3 cm. No obvious imaging signs of acute cholecystitis. No intraductal calculi. Otherwise no obvious cirrhosis or large mass on unenhanced examination. Gallbladder and bile ducts: See Liver finding. Pancreas: No pancreatic ductal dilatation. Somewhat limited pancreatic assessment due to lack of contrast however the pancreas demonstrates normal size and contour with no large contour deforming mass or obvious large pseudocyst. However there is small amount of non loculated fluid in the midline/right and left anterior pararenal space which is contiguous with the proximal pancreas. Findings may represent acute 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 Clinical/pancreatic enzyme correlation should be obtained.. Spleen: Unremarkable. No splenomegaly. Adrenal glands: Unremarkable. No mass. Kidneys and ureters: See Pancreas finding. Stomach and bowel: Visualized stomach and intestines are unremarkable. Intraperitoneal space: No free fluid. Vasculature: Ultrasound report earlier same day describing upper abdominal aorta measuring up to 4.4 cm however the upper abdominal aorta on the current exam measures about 3 cm. No evidence of aortic aneurysm. Bones/joints: Limited routine abdominal sequences were obtained including breath hold T1 weighted and T2 weighted sequences and limited MRCP series. Contrast-enhanced images and diffusion imaging was not performed. Soft tissues: Unremarkable. MR/MR MRCP [id number] IMPRESSION: 1. Limited MRI with limited sequences and no contrast enhancement. 2. Trace fluid/edema in the pararenal space contiguous with proximal pancreas which may represent acute 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 Clinical/pancreatic enzyme correlation should be obtained. No large pseudocyst or obvious pancreatic ductal dilatation. 3. Cholelithiasis with no significant bile duct dilatation. 4. No evidence of aortic aneurysm as described on earlier ultrasound report.
[2022-10-23] MEDS: piperacillin-tazobactam 3.375 GM in sodium chloride 0.9% (plus) 50 ML IV (22:53)
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
--- NOTE | 2022-10-23 23:20 | PC.NURSE ---
attempted to call report. not assigned to a nurse yet.
[2022-10-23 23:40] LABS: Triglycerides 82 mg/dL (0-150)
[2022-10-23 23:44] LABS: Alcohol Level < 10 mg/dL (0-10)
[2022-10-23 23:54] LABS: Procalcitonin 0.24 ng/mL (0-0.5); Vitamin B12 1866 pg/mL (232-1245)
[2022-10-24] VITALS (9 sets, daily range): BP systolic 168–194; BP diastolic 52–99; PULSE 66–90; RESP 15–20; TEMP 36.7–37.1; O2SAT 93–97
[2022-10-24] MEDS: sodium chloride 0.9% 1,000 ML 75 ML IV ×2 (01:15→14:39)
[2022-10-24 04:06] LABS: Glucose Urine UA Norm (Normal); Ketones Urine 1+ (Negative); Protein Urine 1+ (Negative); Urine Appearance Clear (CLEAR); Urine Color Amber (Yellow); pH Urine 5 (5-7)
[2022-10-24 04:07] LABS: Add Urine Microscopic? YES; Bilirubin Urine 1+ (Negative); Blood Urine Neg (Negative); Leukocyte Esterase Urine Negative (Negative); Nitrate Urine Negative (Negative); Urobilinogen Urine 1 mg/dL (Negative)
[2022-10-24 04:13] LABS: Amorphous Sediment Urine 1+ /hpf; Coarse Granular Casts Urine 0-4 /lpf; RBC Urine 0-4 /hpf (0-2); Squamous Epithelial Cell Urine 0-4 /hpf (0-5); WBC Urine 0-4 /hpf (0-5)
[2022-10-24 04:14] LABS: Add Urine Culture? No
[2022-10-24 04:53] LABS: Basophils % 0.2 %; Eosinophils % 0.1 %; Hematocrit 43.4 % (42.0-52.0); Hemoglobin 14.9 g/dL (11.7-16.6); Lymphocytes # 1.9 10^3/uL (0.8-4.8); Lymphocytes % 12.4 %; Mean Corpuscular HGB Conc 34.3 g/dL (30.0-36.0); Mean Corpuscular Hemoglobin 32.3 pg (28.0-34.0); Mean Corpuscular Volume 93.9 fl (80-94); Mean Platelet Volume 10.6 fL (7.4-10.4); Monocytes # 0.6 10^3/uL (0.2-0.9); Monocytes % 4.1 %; Neutrophils # 12.34 10^3/uL (1.8-7.7); Neutrophils % 82.8 %; Nucleated Red Blood Cells % 0 %; Platelet Count 354 10^3/cmm (130-400); Red Blood Count 4.62 10^6/uL (4.1-5.3); Red Cell Distribution Width 11.9 % (12.1-15.1); White Blood Count 14.9 10^3/uL (4.0-10.0)
[2022-10-24 05:27] LABS: Albumin Level 3.8 g/dL (3.5-5.2); Alkaline Phosphatase 195 U/L (40-130); Anion Gap 14.3 (5-19); Aspartate Amino Transferase 344 U/L (0-40); Blood Urea Nitrogen 17 mg/dL (6-20); C Reactive Protein 10.5 mg/L (0.0-4.9); Calcium 8.9 mg/dL (8.5-10.5); Carbon Dioxide 25 mmol/L (22-29); Chloride 103 mmol/L (98-107); Globulin 3.5 g/dL (1.3-4.6); Glomerular Filtration Rate 116.7 mL/min (90-130); Glucose 127 mg/dL (65-115); Magnesium 1.9 mg/dL (1.7-2.3); Osmolality Calculated 291 mOsm/kg (285-295); Phosphorus 2.1 mg/dL (2.5-4.5); Potassium 3.3 mmol/L (3.5-5.1); Sodium 139 mmol/L (136-145); Total Bilirubin 1.2 mg/dL (0.15-1.2); Total Protein 7.3 g/dL (6.6-8.7)
[2022-10-24 05:41] LABS: Alanine Aminotransferase 1075 U/L (0-41)
[2022-10-24] MEDS: sennosides-docusate Tablet 1 TAB PO (08:34)
[2022-10-24] MEDS: cefTRIAXone 1,000 MG in sodium chloride 0.9% (plus) 50 ML 100 MG IV (08:36)
[2022-10-24] MEDS: pantoprazole 40 mg SDV IVP ×2 (08:36→18:06)
--- NOTE | 2022-10-24 08:36 | PC.PHAR ---
pt states he takes no rx medications-pt states only been taking aspirin and a multivitamin-pt states he thinks its a full 325mg aspirin he takes
--- NOTE | 2022-10-24 10:39 | PC.CHAP ---
Pastoral Care Encounter/Spiritual Assessment Type of Contact [] Declined medical billing coder visit [] Patient/Family/Request visit [] Outpatient visit [] Follow-up visit [] Physician referral [] Code/Alert [x] Routine visit [] Staff referral [] Actively dying [] Patient sleeping [] Family support [] [] Out of room [] Palliative care [] [x] Receiving care in room [] Pre-surgical visit [] Trauma [] Long length of stay [] ICU visit [] Other: Relational/Emotional Strength [x] Patient feels connected with others/family/visitors/staff [] Distress [] Loneliness/isolation [] Abandonment Spirituality of Patient [x] Person of Lisandra [] Attends Mandaeism of their Lisandra [x] Believes in Prayer [] Reads Bible or Quaker materials [] There are Spiritual issues to be addressed Turbinated Bone Grinder Interventions [x] Prayer [x] Active listening [x] Non-anxious presence [x] Spiritual/emotional support [] Crisis/trauma care [x] Spiritual counseling [] Bereavement support [] Provided bereavement packet [] Provided Bible/devotional materials [] Provided toy/stuffed animal, coloring book to patient or family member [] Provided Communion [] Anointing/[place] [] Salvation [x] Completed spiritual assessment [] Other: Impact on Illness or Injury [] Angry [] Fearful [x] Anxious [] Often cries [] Exhaustion [] Unable to work [] Unable to attend mormon [] Unable to walk/stand [] Unable to read [] Unable to drive [] Unable to eat/drink [] Unable to sleep [] Unable to be with family [] Patient intubated [] Other: Summary dealing with stomack feeling better has a good attitude well go home Time spent with patient 10 mins
[2022-10-24] MEDS: morphine IR 15 mg Tablet PO (14:32)
[2022-10-24] MEDS: ondansetron 2 mg/ML SDV 2 mL 4 MG IVP (14:37)
--- NOTE | 2022-10-24 15:32 | PM.PN ---
Subjective Subjective: Abdominal pain is slightly better today. LFTs are improving. No vomiting. Mild nausea. Has an appetite wishes to attempt eating. Liver enzymes are downtrending Medications: Reviewed: Yes Vitals/I&O/Wt Last Vital Signs Temp 98.0 F 10/24/22 15:14 Pulse 74 10/24/22 15:14 Resp 16 10/24/22 15:14 BP 189/95 10/24/22 15:14 Pulse Ox 95 10/24/22 15:14 O2 Del Method 10/24/22 15:14 10/24/22 10/24/22 10/24/22 06:59 14:59 22:59 Intake Total 2099 Output Total 350 / 350 Balance 2099 -350 / 1750 Weight last 48 hrs Weight 81.647 kg Physical Exam Narrative: General: No acute distress, AO x3 HEENT: PERRLA, pupils bilaterally equal and reactive, pallors not present Chest: Normal vesicular breath sounds, no added sounds, equal good air entry bilaterally CVS: S1-S2 regular, no murmurs, no tachycardia, no gallops, no rubs Abdomen: Soft, nontender, no organomegaly, bowel sounds present Neuro: Tender to palpation over the epigastric region no tenderness right upper quadrant. Data 10/24/22 04:00 10/24/22 04:00 A&P Assessment and plan (1) Acute pancreatitis: (2) Nicotine dependence: (3) Alcohol use: (4) Seizure disorder: (5) Cholelithiasis: (6) Cholecystitis: Plan Acute pancreatitis Abnormal liver enzymes noted MRCP performed overnight showed trace fluid/edema in the pararenal space contiguous with the pancreas loss prevention representative of acute 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 No large pseudocyst or pancreatic duct dilatation. There is cholelithiasis with no significant bile duct dilatation. Patient has a known past medical history of cholelithiasis and had cholecystitis approximately 1 year ago complicated by sepsis for which she needed antibiotic treatment for over a month. Was recommended interval cholecystectomy, however there was no further follow-up regarding the same. Currently there is no signs of acute ductal dilatation or obstruction. Liver enzymes are trending down. Possible that symptoms may have been related to a passed stone. He will need eventual follow-up for cholecystectomy. Surgery has been consulted to a certain best timing for the same. 

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
[2022-10-25] VITALS (14 sets, daily range): BP systolic 136–210; BP diastolic 75–108; PULSE 74–94; RESP 16–19; TEMP 36.3–37.4; O2SAT 94–96
[2022-10-25] MEDS: sodium chloride 0.9% 1,000 ML 75 ML IV ×2 (02:14→14:22)
[2022-10-25] MEDS: hyDRALAzine 20 mg/mL INJ 1 mL 5 MG IVP ×3 (04:35→18:10)
[2022-10-25] MEDS: ondansetron 2 mg/ML SDV 2 mL 4 MG IVP ×3 (05:22→21:42)
[2022-10-25] MEDS: ketorolac 30 mg/mL INJ 15 MG IVP ×2 (05:26→21:42)
[2022-10-25 05:45] LABS: Basophils % 0.2 %; Eosinophils % 0.2 %; Hematocrit 42.9 % (42.0-52.0); Hemoglobin 14.8 g/dL (11.7-16.6); Lymphocytes # 2.5 10^3/uL (0.8-4.8); Lymphocytes % 17.1 %; Mean Corpuscular HGB Conc 34.5 g/dL (30.0-36.0); Mean Corpuscular Hemoglobin 32.3 pg (28.0-34.0); Mean Corpuscular Volume 93.7 fl (80-94); Mean Platelet Volume 10.1 fL (7.4-10.4); Monocytes # 0.8 10^3/uL (0.2-0.9); Monocytes % 5.2 %; Neutrophils # 11.04 10^3/uL (1.8-7.7); Nucleated Red Blood Cells % 0 %; Platelet Count 303 10^3/cmm (130-400); Red Blood Count 4.58 10^6/uL (4.1-5.3); Red Cell Distribution Width 11.9 % (12.1-15.1); White Blood Count 14.3 10^3/uL (4.0-10.0)
[2022-10-25 06:02] LABS: Alanine Aminotransferase 640 U/L (0-41); Albumin Level 4.1 g/dL (3.5-5.2); Alkaline Phosphatase 164 U/L (40-130); Aspartate Amino Transferase 112 U/L (0-40); Blood Urea Nitrogen 8 mg/dL (6-20); Calcium 9.3 mg/dL (8.5-10.5); Carbon Dioxide 24 mmol/L (22-29); Chloride 98 mmol/L (98-107); Globulin 3.2 g/dL (1.3-4.6); Glucose 119 mg/dL (65-115); Osmolality Calculated 277 mOsm/kg (285-295); Sodium 134 mmol/L (136-145); Total Bilirubin 0.9 mg/dL (0.15-1.2); Total Protein 7.3 g/dL (6.6-8.7)
[2022-10-25 06:09] LABS: Anion Gap 15.7 (5-19); Potassium 3.7 mmol/L (3.5-5.1)
[2022-10-25] MEDS: cefTRIAXone 1,000 MG in sodium chloride 0.9% (plus) 50 ML 100 MG IV (08:58)
[2022-10-25] MEDS: sennosides-docusate Tablet 1 TAB PO (09:01)
[2022-10-25] MEDS: pantoprazole 40 mg SDV IVP ×2 (09:01→17:02)
--- NOTE | 2022-10-25 12:03 | PC.CHAP ---
Pastoral Care Encounter/Spiritual Assessment Type of Contact [] Declined contract consultant visit [] Patient/Family/Request visit [] Outpatient visit [] Follow-up visit [] Physician referral [] Code/Alert [x] Routine visit [] Staff referral [] Actively dying [] Patient sleeping [] Family support [] [] Out of room [] Palliative care [] [] Receiving care in room [] Pre-surgical visit [] Trauma [] Long length of stay [] ICU visit [] Other: Relational/Emotional Strength [x] Patient feels connected with others/family/visitors/staff [] Distress [] Loneliness/isolation [] Abandonment Spirituality of Patient [x] Person of Lisandra [] Attends Lutheran of their Lisandra [] Believes in Prayer [] Reads Bible or Hindu materials [] There are Spiritual issues to be addressed Advertising Sales Executive Interventions [x] Prayer [] Active listening [] Non-anxious presence [] Spiritual/emotional support [] Crisis/trauma care [] Spiritual counseling [] Bereavement support [] Provided bereavement packet [] Provided Bible/devotional materials [] Provided toy/stuffed animal, coloring book to patient or family member [] Provided Communion [] Anointing/Goode [] Salvation [x] Completed spiritual assessment [] Other: Impact on Illness or Injury [] Angry [] Fearful [] Anxious [] Often cries [] Exhaustion [] Unable to work [] Unable to attend mandaeism [] Unable to walk/stand [] Unable to read [] Unable to drive [] Unable to eat/drink [] Unable to sleep [] Unable to be with family [] Patient intubated [] Other: Summary Time spent with patient 10 min
[2022-10-25] MEDS: acetaminophen 500 mg Tablet PO (15:12)
--- NOTE | 2022-10-25 15:46 | PM.PN ---
Subjective Subjective: Patient reports that his pain has improved somewhat. He is now tolerating solid food but he is unable to eat much. Denies any nausea or vomiting Vitals/I&O/Wt Last Vital Signs Temp 98.0 F 10/25/22 15:00 Pulse 80 10/25/22 15:00 Resp 18 10/25/22 15:00 BP 200/99 10/25/22 15:00 Pulse Ox 95 10/25/22 15:00 O2 Del Method 10/25/22 15:00 10/25/22 10/25/22 10/25/22 06:59 14:59 22:59 Intake Total 868.75 / 3508.75 1320 / 1320 Output Total 850 / 1550 Balance 18.75 / 1958.75 1320 / 1320 Weight last 48 hrs Weight 180 lb Physical Exam Narrative: General: No acute distress, awake alert and oriented x3 Abdomen soft, mildly distended, mild tenderness palpation over epigastrium, no guarding rebound or masses Data 10/25/22 05:35 10/25/22 05:35 A&P Assessment and plan (1) Acute pancreatitis: (2) Cholelithiasis: (3) Alcohol use: Plan IV fluids Abstain from alcohol No acute surgical intervention I would like to see him in my office in 2 weeks to discuss possible elective cholecystectomy Attestations Medical Necessity Statement*: Further hospitalization per hospitalist Coding Level of Care Code Acute Home Health Assistant for [facility] Diagnoses Acute pancreatitis K85.90 Cholelithiasis K80.20 Alcohol use Z72.89
--- NOTE | 2022-10-25 16:13 | P.PN_ITS ---
Subjective Subjective: Advance diet to a GI soft diet earlier today, however he did not tolerate this very well. Has some nausea and bloating therefore will transition back to full liquid diet. Blood pressure is running elevated between 1 60-200 systolic. We will start patient on p.o. amlodipine. Medications: Reviewed: Yes Vitals/I&O/Wt Last Vital Signs Temp 98.0 F 10/25/22 15:00 Pulse 80 10/25/22 15:00 Resp 18 10/25/22 15:00 BP 200/99 10/25/22 15:00 Pulse Ox 95 10/25/22 15:00 O2 Del Method 10/25/22 15:00 10/25/22 10/25/22 10/25/22 06:59 14:59 22:59 Intake Total 868.75 / 3508.75 1320 / 1320 Output Total 850 / 1550 Balance 18.75 / 1958.75 1320 / 1320 Physical Exam Narrative: General: No acute distress, AO x3 HEENT: PERRLA, pupils bilaterally equal and reactive, pallors not present Chest: Normal vesicular breath sounds, no added sounds, equal good air entry bilaterally CVS: S1-S2 regular, no murmurs, no tachycardia, no gallops, no rubs Abdomen: Soft, nontender, no organomegaly, bowel sounds present Neuro: No focal deficits, no facial deformity, AO x3, power 5/5 in all limbs Data 10/25/22 05:35 10/25/22 05:35 A&P Assessment and plan (1) Acute pancreatitis: (2) Nicotine dependence: (3) Alcohol use: (4) Seizure disorder: (5) Cholelithiasis: Plan Acute pancreatitis Abnormal liver enzymes noted MRCP performed overnight showed trace fluid/edema in the pararenal space contiguous with the pancreas financial services 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 No large pseudocyst or pancreatic duct dilatation. There is cholelithiasis with no significant bile duct dilatation. Currently there is no signs of acute ductal dilatation or obstruction. Liver enzymes are trending down. Possible that symptoms may have been related to a passed stone vs alcohol induced pancreatitis Did not tolerate advancing to GI soft today, will keep him on full liquid diet. 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
[2022-10-25] MEDS: amlodipine 10 mg Tablet PO (17:02)
--- NOTE | 2022-10-25 18:35 | PC.NURSE ---
pt b/p 188/96 at 1730 pt had 1st dose of amlodipine at 1702...b/p rechecked at 1800 200/102 pt is asymptomatic...dr jimenez was notified ...pt was given 5mg iv hydralazine prn at 1810
[2022-10-26] VITALS (9 sets, daily range): BP systolic 119–188; BP diastolic 73–92; PULSE 71–84; RESP 16–20; TEMP 36.5–36.8; O2SAT 93–98
[2022-10-26] MEDS: sodium chloride 0.9% 1,000 ML 75 ML IV ×2 (01:27→15:21)
[2022-10-26 04:56] LABS: Basophils % 0.3 %; Eosinophils # 0.1 10^3/uL (0.0-0.8); Eosinophils % 0.5 %; Hematocrit 40.8 % (42.0-52.0); Hemoglobin 13.8 g/dL (11.7-16.6); Lymphocytes # 1.8 10^3/uL (0.8-4.8); Mean Corpuscular HGB Conc 33.8 g/dL (30.0-36.0); Mean Corpuscular Hemoglobin 31.7 pg (28.0-34.0); Mean Corpuscular Volume 93.8 fl (80-94); Mean Platelet Volume 9.8 fL (7.4-10.4); Monocytes # 0.7 10^3/uL (0.2-0.9); Monocytes % 6.5 %; Neutrophils # 8.62 10^3/uL (1.8-7.7); Neutrophils % 76.3 %; Nucleated Red Blood Cells % 0 %; Platelet Count 256 10^3/cmm (130-400); Red Blood Count 4.35 10^6/uL (4.1-5.3); Red Cell Distribution Width 11.7 % (12.1-15.1); White Blood Count 11.3 10^3/uL (4.0-10.0)
[2022-10-26 05:18] LABS: Alanine Aminotransferase 399 U/L (0-41); Albumin Level 3.7 g/dL (3.5-5.2); Alkaline Phosphatase 130 U/L (40-130); Anion Gap 12.6 (5-19); Aspartate Amino Transferase 50 U/L (0-40); Blood Urea Nitrogen 10 mg/dL (6-20); Calcium 8.9 mg/dL (8.5-10.5); Carbon Dioxide 25 mmol/L (22-29); Chloride 102 mmol/L (98-107); Globulin 3.1 g/dL (1.3-4.6); Glucose 130 mg/dL (65-115); Osmolality Calculated 283 mOsm/kg (285-295); Potassium 3.6 mmol/L (3.5-5.1); Sodium 136 mmol/L (136-145); Total Bilirubin 0.7 mg/dL (0.15-1.2); Total Protein 6.8 g/dL (6.6-8.7)
[2022-10-26] MEDS: ketorolac 30 mg/mL INJ 15 MG IVP (07:28)
[2022-10-26] MEDS: ondansetron 2 mg/ML SDV 2 mL 4 MG IVP (07:30)
[2022-10-26] MEDS: pantoprazole 40 mg SDV IVP ×2 (10:00→17:59)
[2022-10-26] MEDS: amlodipine 10 mg Tablet PO (10:00)
[2022-10-26] MEDS: sennosides-docusate Tablet 1 TAB PO (10:01)
--- NOTE | 2022-10-26 11:35 | P.PN_ITS ---
Subjective Subjective: seen this am. bp noted 140/80's RN noted that BP comes down after pain medication. 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 Vitals/I&O/Wt Last Vital Signs Temp 97.7 F 10/26/22 07:42 Pulse 78 10/26/22 08:00 Resp 16 10/26/22 08:00 BP 146/82 10/26/22 08:10 Pulse Ox 98 10/26/22 08:00 O2 Del Method 10/26/22 08:00 10/25/22 10/26/22 10/26/22 22:59 06:59 14:59 Intake Total 120 / 1440 1241.25 / 2681.25 320 / 320 Output Total 200 / 200 400 / 600 Balance -80 / 1240 841.25 / 2081.25 320 / 320 Physical Exam Narrative: General: No acute distress, AO x3, pleasant male, smiling HEENT: EOMI Chest: CLear to auscultation b/l, no wheezes or ronchi present. CVS: S1-S2 regular, no murmurs, no tachycardia, no gallops, no rubs Abdomen: Soft, nontender, no organomegaly, bowel sounds present, non tender to palpation Neuro: Non focal, moves all 4 extremities Data 10/26/22 04:45 10/26/22 04:48 A&P Assessment and plan (1) Acute pancreatitis: (2) Nicotine dependence: (3) Alcohol use: (4) Seizure disorder: (5) Cholelithiasis: Plan Acute pancreatitis Abnormal liver enzymes noted MRCP performed overnight showed trace fluid/edema in the pararenal space contiguous with the pancreas mill representative of acute 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 No large pseudocyst or pancreatic duct dilatation. There is cholelithiasis with no sig nificant bile duct dilatation. Currently there is no signs of acute ductal dilatation or obstruction. Liver enzymes are trending down. Possible that symptoms may have been related to a passed stone vs alcohol induced pancreatitis Did not tolerate advancing to GI soft yesterday so remained on full liquid diet. pt says he would like to try soft diet as he feels a lot better. Will transition to gi soft today and monitor response Pain control with Opioids, toradol Continue IV fluids,at rate to 75 cc/hr prn hydralazine for HTN,s tart amlodipine 10mg daily now Normal TG level Full code DVT prophylaxis : Heparin Attestations Medical Necessity Statement*: iv fluids, pain control, slowly advancing diet Coding Level of Care Code Acute Healthcare Administration Internship for g Fwd Diagnoses Acute pancreatitis K85.90 Nicotine dependence F17.200 Alcohol use Z72.89 Seizure disorder G40.909 Cholelithiasis K80.20
--- NOTE | 2022-10-26 14:32 | P.PN_ITS ---
Subjective Subjective: Patient reports that his pain has improved somewhat. He is now tolerating solid food better. Denies any nausea or vomiting Vitals/I&O/Wt Last Vital Signs Temp 97.9 F 10/26/22 12:52 Pulse 83 10/26/22 12:52 Resp 17 10/26/22 12:52 BP 137/80 10/26/22 12:52 Pulse Ox 95 10/26/22 12:52 O2 Del Method 10/26/22 08:00 10/25/22 10/26/22 10/26/22 22:59 06:59 14:59 Intake Total 120 / 1440 1241.25 / 2681.25 320 / 320 Output Total 200 / 200 400 / 600 Balance -80 / 1240 841.25 / 2081.25 320 / 320 Physical Exam Narrative: General: No acute distress, awake alert and oriented x3 Abdomen soft, mildly distended, mild tenderness palpation over epigastrium, no guarding rebound or masses Data 10/26/22 04:45 10/26/22 04:48 A&P Assessment and plan (1) Acute pancreatitis: (2) Cholelithiasis: (3) Alcohol use: Plan IV fluids Abstain from alcohol No acute surgical intervention I would like to see him in my office in 2 weeks to discuss possible elective cholecystectomy Attestations Medical Necessity Statement*: Further hospitalization per hospitalist Coding Level of Care Code 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
[2022-10-27] VITALS: BP 143/85; PULSE 82; RESP 18; TEMP 36.8; O2SAT 96
[2022-10-27] MEDS: sodium chloride 0.9% 1,000 ML 75 ML IV (03:04)
[2022-10-27 04:00] VITALS: BP 134/82; PULSE 71; RESP 18; TEMP 36.8; O2SAT 96
[2022-10-27 07:45] VITALS: BP 147/74; PULSE 77; RESP 18; TEMP 36.9; O2SAT 95
[2022-10-27 08:00] VITALS: PULSE 76; RESP 18; O2SAT 95
[2022-10-27] MEDS: pantoprazole 40 mg SDV IVP (09:07)
[2022-10-27] MEDS: sennosides-docusate Tablet 1 TAB PO (09:08)
[2022-10-27] MEDS: amlodipine 10 mg Tablet PO (09:08)
--- NOTE | 2022-10-27 11:02 | PM.DCS ---
Discharge Providers Date of Admission: 10/23/22 23:11 Date of Discharge: October 27, 2022 Attending Provider at Admission: El Royal MD Attending Provider at Discharge: Sondra Henao MD Diagnoses at Discharge Discharge Diagnosis (1) Acute pancreatitis: Status: Acute (2) Cholelithiasis: Status: Acute (3) Alcohol use: Status: Acute Reason for Visit Reason for Visit: Stomach pain, throwing up, and pain Hospital Course Hospital Course Gurvinder Carranza is a 57 year old male who presented with chief complaint of nausea, vomiting abdominal pain.? He had abnormal liver enzymes including alkaline phosphatase at presentation. He underwent an MRCP which showed trace fluid in the pararenal space contiguous with the pancreas circulation 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 No large pseudocyst or pancreatic duct dilatation was noted. There was cholelithiasis without significant bile duct dilation. There were no gross signs of acute ductal dilatation or obstruction. Liver enzymes started to trend down. He was treated with medical management with IV fluids, bowel rest, pain management and slowly diet was advanced. He is tolerating a GI soft diet at the time of discharge. It is possible that his pancreatitis may have been related to a passed stone versus alcohol induced 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 Patient does consume alcohol on a daily basis. He was also noted during admission to be hypertensive, systolic blood pressure ranging between 1 80-200 without unknown past history of hypertension. With those high blood pressures amlodipine 10 mg p.o. daily was introduced following which his blood pressure is much better regulated with systolic between 1 30-1 40. Recommended to follow-up with a primary care provider, he does not currently have a PCP and referral has been provided for the same. Follow-up additionally with Dr. Hernandez for nonemergent cholecystectomy for history of symptomatic cholelithiasis. Physical Exam Narrative: General: No acute distress, AO x3 HEENT: PERRLA, pupils bilaterally equal and reactive, pallors not present Chest: Normal vesicular breath sounds, no added sounds, equal good air entry bilaterally CVS: S1-S2 regular, no murmurs, no tachycardia, no gallops, no rubs Abdomen: Soft, nontender, no organomegaly, bowel sounds present Neuro: No focal deficits, no facial deformity, AO x3, power 5/5 in all limbs Discharge Data Studies Completed and Pending Completed Studies During Hospitalization Category Date Time Status MR MRCP [id number] Stat MRI 10/23/22 21:11 Completed US gall bladder [id number] Stat Ultrasound 10/23/22 20:26 Completed Radiology Impressions Gallbladder Ultrasound 10/23/22 20:26 IMPRESSION: 1. Cholelithiasis, positive Lim's sign and gallbladder wall thickening to 6.7 mm concerning for an acute cholecystitis. 2. Hepatic steatosis. 3. 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 Cholangiopancreatography MRI 10/23/22 21:11 IMPRESSION: 1. Limited MRI with limited sequences and no contrast enhancement. 2. Trace fluid/edema in the pararenal space contiguous with proximal pancreas which may represent acute 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 Clinical/pancreatic enzyme correlation should be obtained. No large pseudocyst or obvious pancreatic ductal dilatation. 3. Cholelithiasis with no significant bile duct dilatation. 4. No evidence of aortic aneurysm as described on earlier ultrasound report. Laboratory Results WBC 11.3 10^3/uL (4.0-10.0) H 10/26/22 04:45 RBC 4.35 10^6/uL (4.1-5.3) 10/26/22 04:45 Hgb 13.8 g/dL (11.7-16.6) 10/26/22 04:45 Hct 40.8 % (42.0-52.0) L 10/26/22 04:45 MCV 93.8 fl (80-94) 10/26/22 04:45 MCH 31.7 pg (28.0-34.0) 10/26/22 04:45 MCHC 33.8 g/dL (30.0-36.0) 10/26/22 04:45 RDW 11.7 % (12.1-15.1) L 10/26/22 04:45 Plt Count 256 10^3/cmm (130-400) 10/26/22 04:45 MPV 9.8 fL (7.4-10.4) 10/26/22 04:45 Neut % (Auto) 76.3 % 10/26/22 04:45 Lymph % (Auto) 16.0 % 10/26/22 04:45 [place] % (Auto) 6.5 % 10/26/22 04:45 Eos % (Auto) 0.5 % 10/26/22 04:45 Baso % (Auto) 0.3 % 10/26/22 04:45 Neut # (Auto) 8.62 10^3/uL (1.8-7.7) H 10/26/22 04:45 Lymph # (Auto) 1.8 10^3/uL (0.8-4.8) 10/26/22 04:45 [place] # (Auto) 0.7 10^3/uL (0.2-0.9) 10/26/22 04:45 Eos # (Auto) 0.1 10^3/uL (0.0-0.8) 10/26/22 04:45 Baso # (Auto) 0.0 10^3/uL (0.0-0.1) 10/26/22 04:45 Nucleated RBC % (auto) 0 % 10/26/22 04:45 Nucleated RBCs # 0.0 /100WBC 10/26/22 04:45 Sodium 136 mmol/L (136-145) 10/26/22 04:48 Potassium 3.6 mmol/L (3.5-5.1) 10/26/22 04:48 Chloride 102 mmol/L (98-107) 10/26/22 04:48 Carbon Dioxide 25 mmol/L (22-29) 10/26/22 04:48 Anion Gap 12.6 (5-19) 10/26/22 04:48 BUN 10 mg/dL (6-20) 10/26/22 04:48 Creatinine 0.5 mg/dL (0.7-1.2) L 10/26/22 04:48 GFR Calculation 172.0 mL/min (90-130) H 10/26/22 04:48 Glucose 130 mg/dL (65-115) H 10/26/22 04:48 Calculated Osmolality 283 mOsm/kg (285-295) L 10/26/22 04:48 Calcium 8.9 mg/dL (8.5-10.5) 10/26/22 04:48 Phosphorus 2.1 mg/dL (2.5-4.5) L 10/24/22 04:00 Magnesium 1.9 mg/dL (1.7-2.3) 10/24/22 04:00 Total Bilirubin 0.7 mg/dL (0.15-1.2) 10/26/22 04:48 AST 50 U/L (0-40) H 10/26/22 04:48 ALT 399 U/L (0-41) H 10/26/22 04:48 Alkaline Phosphatase 130 U/L (40-130) 10/26/22 04:48 C-Reactive Protein 10.5 mg/L (0.0-4.9) H 10/24/22 04:00 Total Protein 6.8 g/dL (6.6-8.7) 10/26/22 04:48 Albumin 3.7 g/dL (3.5-5.2) 10/26/22 04:48 Globulin 3.1 g/dL (1.3-4.6) 10/26/22 04:48 Triglycerides 82 mg/dL (0-150) 10/23/22 19:46 Lipase 1962 U/L (13-60) H 10/23/22 19:46 Vitamin B12 1866 pg/mL (232-1245) H 10/23/22 19:46 Procalcitonin 0.24 ng/mL (0-0.5) 10/23/22 19:46 Urine Color Beth (Yellow) 10/24/22 01:05 Urine Appearance Clear (CLEAR) 10/24/22 01:05 Urine pH 5 (5-7) 10/24/22 01:05 Ur Specific [place] 1.020 (1.005-1.030) 10/24/22 01:05 Urine Protein 1+ (Negative) H 10/24/22 01:05 Urine Glucose (UA) Norm (Normal) 10/24/22 01:05 Urine Ketones 1+ (Negative) H 10/24/22 01:05 Urine Blood Neg (Negative) 10/24/22 01:05 Urine Nitrate Negative (Negative) 10/24/22 01:05 Urine Bilirubin 1+ (Negative) H 10/24/22 01:05 Urine Urobilinogen 1 mg/dL (Negative) H 10/24/22 01:05 Ur Leukocyte Esterase Negative (Negative) 10/24/22 01:05 Urine RBC 0-4 /hpf (0-2) H 10/24/22 01:05 Urine WBC 0-4 /hpf (0-5) H 10/24/22 01:05 Ur Squamous Epith Cells 0-4 /hpf (0-5) H 10/24/22 01:05 Amorphous Sediment 1+ /hpf 10/24/22 01:05 Urine Bacteria None /hpf (NONE) 10/24/22 01:05 Coarse Granular Casts 0-4 /lpf H 10/24/22 01:05 Ethyl Alcohol < 10 mg/dL (0-10) 10/23/22 19:46 Vitals Last Vital Signs Temp 98.5 F 10/27/22 07:45 Pulse 76 10/27/22 08:00 Resp 18 10/27/22 08:00 BP 147/74 10/27/22 07:45 Pulse Ox 95 10/27/22 08:00 O2 Del Method 10/27/22 08:00 Discharge Plan Discharge Patient Disposition: Home Condition: Stable Prescriptions: New Percocet 5-325 mg tablet 1 tab PO Q8H PRN (Reason: pain) 5 Days Qty: 15 0RF amlodipine 10 mg Tablet 10 mg PO DAILY 30 Days Qty: 30 0RF ondansetron 4 mg tablet,disintegrating 4 mg PO Q8H PRN (Reason: nausea and vomiting) 5 Days Qty: 14 0RF pantoprazole [Protonix] 40 mg tablet,delayed release (DR/EC) 40 mg PO BID 10 Days Qty: 20 0RF Continued multivitamin Tablet 1 tab PO QAM aspirin 325 mg Tablet 325 mg PO QAM Discharge Orders: Discharge Order (Routine); Ordered 10/27/22 Ordered By: Rylie Jovel Discharge Diet: Usual diet Discharge Activity: Resume usual activity Patient Instructions: Opioid Safety Activity Restrictions/Additional Instructions: recommended to continue with bland, GI soft diet over the next 2-3 days and advance slowly to a regular diet Discharge Attestations Time Spent in Discharge Care*: greater than 30 min Quality Metrics Clinical Quality Measures [ No reported AMI, CVA or VTE this stay] Coding Level of Care Code Acute Chg FW DC note Diagnoses Acute pancreatitis K85.90 Cholelithiasis K80.20 Alcohol use Z72.89
[2022-10-27 11:13] VITALS: BP 133/73; PULSE 80; RESP 18; TEMP 36.6; O2SAT 93
[2022-10-27 12:45] VITALS: BP 133/73; PULSE 80; RESP 18; TEMP 36.6; O2SAT 93
== END 2022-10-27 12:46 | disposition home or self-care (01) | DRG 440 ==
LOC: ER 20:28 → MEDSURG 23:12
PROVIDERS: Emergency Medicine; Student in an Organized Health Care Education/Training Program; Admitting Provider Internal Medicine; Emergency Provider Emergency Medicine; Visit Provider Internal Medicine
DX: K85.10 Biliary acute pancreatitis without necrosis or infection (principal); K85.20 Alcohol induced acute pancreatitis without necrosis or infection; K80.20 Calculus of gallbladder without cholecystitis without obstruction; F10.90 Alcohol use, unspecified, uncomplicated; Y90.0 Blood alcohol level of less than 20 mg/100 ml; I10 Essential (primary) hypertension; F17.220 Nicotine dependence, chewing tobacco, uncomplicated; G40.909 Epilepsy, unspecified, not intractable, without status epilepticus; Z79.82 Long term (current) use of aspirin
CPT/HCPCS: 36415; 74181; 76705; 80053; 80307; 81001; 82607; 83690; 83735; 84100; 84145; 84478; 85025; 86140; 96365; 96375; 99285; C9113; J0360; J0696; J1885; J2270; J2405; J2543; J3411; J7030

== ENCOUNTER → 2025-01-04 08:01 | Outpatient (BNVA) | payer OTHER, SELFPAY | PROVIDERS: PCP Clinical Nurse Specialist Adult Health; Visit Provider Clinical Nurse Specialist Adult Health | DX: I10 Essential (primary) hypertension (principal) | CPT/HCPCS: 80053; 83735 ==

== ENCOUNTER → 2025-05-06 09:23 | Outpatient (BNVA) | payer OTHER, SELFPAY | PROVIDERS: PCP Clinical Nurse Specialist Adult Health; Visit Provider Clinical Nurse Specialist Adult Health | DX: I10 Essential (primary) hypertension (principal); E87.6 Hypokalemia; E83.41 Hypermagnesemia | CPT/HCPCS: 80053; 80061; 83735; 84443; 85025 ==

== ENCOUNTER → 2025-05-27 08:19 | Outpatient (BNVA) | payer OTHER, SELFPAY | PROVIDERS: Absent Provider Clinical Nurse Specialist Adult Health; PCP Clinical Nurse Specialist Adult Health; Visit Provider Clinical Nurse Specialist Adult Health | DX: E83.41 Hypermagnesemia (principal); E87.6 Hypokalemia | CPT/HCPCS: 80048; 83735 ==